=== PATIENT | female | born 1990 | race Caucasian/White ===

== ENCOUNTER 2018-04-24 15:39 | Emergency (ER) | payer OTHER, SELFPAY ==
--- NOTE | 2018-04-24 16:04 | ERPHSYRPT ---
- History of Present Illness Time Seen by Provider: 04/24/18 15:50 Historian: patient Exam Limitations: no limitations Patient Subjective Stated Complaint: pt here for pain to right side since last night , that started last night, nausea, no vomiting or loose stools, Triage Nursing Assessment: pt alert, walked in, resp easy, skin w/d/p. has rebound tenderness to right side Physician History: 28 y/o white female presents with 24 hour h/o worsening rlq abd pain. no n/v/d or fevers. pain localized in that area and now hurts to extend right leg. denies rectal bleeding. and denies white vaginal discharge. no flank pain. pt states she did notice mild vaginal blood spotting this am. last menstrual period 3 weeks ago. Activities at Onset: none Quality: sharpness Abdominal Pain Onset Location: RLQ Pain Radiation: no radiation Modifying Factors: Improves With: lying down, palpation, position, walking Associated Symptoms: No back, No chest pain, No diaphoresis, No diarrhea, No fever/chills, No nausea, No neck pain, No shortness of breath, No vomiting, No weakness Previous symptoms: no prior history Allergies/Adverse Reactions: Penicillins Allergy (Mild, Verified 04/24/18 15:45) Pt states Home Medications: Gabapentin 100 mg TID 04/24/18 [History] Hx Tetanus, Diphtheria Vaccination/Date Given: Yes Hx Influenza Vaccination/Date Given: No Hx Pneumococcal Vaccination/Date Given: No Immunizations Up to Date: Yes - Review of Systems Constitutional: No Symptoms Eyes: No Symptoms Ears, Nose, & Throat: No Symptoms Respiratory: No Symptoms Cardiac: No Symptoms Abdominal/Gastrointestinal: Abdominal Pain, No Nausea, No Vomiting, No Diarrhea Genitourinary Symptoms: Vaginal Bleeding (mild blood spotting once this am), No Dysuria, No Frequency, No Hematuria Musculoskeletal: No Symptoms Skin: No Symptoms Neurological: No Symptoms Psychological: No Symptoms Endocrine: No Symptoms Hematologic/Lymphatic: No Symptoms Immunological/Allergic: No Symptoms All Other Systems: Reviewed and Negative - Past Medical History Pertinent Past Medical History: No Neurological History: No Pertinent History ENT History: No Pertinent History Cardiac History: No Pertinent History Respiratory History: No Pertinent History Endocrine Medical History: No Pertinent History Musculoskeletal History: No Pertinent History GI Medical History: No Pertinent History History: No Pertinent History Psycho-Social History: No Pertinent History Female Reproductive Disorders: No Pertinent History - Past Surgical History Past Surgical History: Yes Neuro Surgical History: No Pertinent History Cardiac: No Pertinent History Respiratory: No Pertinent History Gastrointestinal: No Pertinent History Genitourinary: No Pertinent History Musculoskeletal: No Pertinent History Female Surgical History: No Pertinent History Other Surgical History: TONSILS AND ADENOIDS - Social History Smoking Status: Never smoker Exposure to second hand smoke: Yes Drug Use: none Patient Lives Alone: No - Female History Hx Last Menstrual Period: mar 2018 Hx Now: No - Nursing Vital Signs Nursing Vital Signs: Initial Vital Signs Temperature 97.6 F 04/24/18 15:51 Pulse Rate 86 04/24/18 15:51 Respiratory Rate 16 04/24/18 15:51 Blood Pressure 115/70 04/24/18 15:51 O2 Sat by Pulse Oximetry 100 04/24/18 15:51 Pain Scale Pain Intensity 4 - Physical Exam General Appearance: mild distress, alert, anxiety Eye Exam: PERRL/EOMI Ears, Nose, Throat Exam: normal ENT inspection, moist mucous membranes Neck Exam: normal inspection, non-tender, supple, full range of motion Respiratory Exam: normal breath sounds, lungs clear, airway intact, No respiratory distress, No accessory muscle use, No rhonchi, No wheezing, No stridor Cardiovascular Exam: regular rate/rhythm Gastrointestinal/Abdomen Exam: soft, normal bowel sounds, tenderness (right lower quadrant), guarding, rebound (+/-) Pelvic Exam: not done Rectal Exam: not done Back Exam: normal inspection, normal range of motion, CVA tenderness Extremity Exam: normal inspection, normal range of motion, pelvis stable Neurologic Exam: alert, oriented x 3, cooperative, marketing regional consultant II-XII nml as tested Skin Exam: normal color, warm, dry Lymphatic Exam: No adenopathy SpO2 Interpretation: normal SpO2: 100 Oxygen Delivery: Room Air Ordered Tests: Active Orders 24 hr Category Date Time Status Clean Catch Urine Specimen STAT Care 04/24/18 16:05 Active IV Insertion STAT Care 04/24/18 16:05 Active ABDOMEN AND PELVIS W CONTRAST [CT] Stat Exams 04/24/18 16:06 Taken AMYLASE Stat Lab 04/24/18 16:10 Completed CBC W DIFF Stat Lab 04/24/18 16:10 Completed CMP Stat Lab 04/24/18 16:10 Completed CULTURE,URINE Stat Lab 04/24/18 17:33 Received HCG,QUALITATIVE URINE Stat Lab 04/24/18 17:33 Completed LIPASE Stat Lab 04/24/18 16:10 Completed Lactic Acid Stat Lab 04/24/18 16:05 Completed Lactic Acid Stat Lab 04/24/18 18:25 Completed UA W/RFX UR CULTURE Stat Lab 04/24/18 17:33 Completed Medication Summary Discontinued Medications Generic Name Dose Route Start Last Admin Trade Name Zander PRN Reason Stop Dose Admin Sodium Chloride 1,000 mls @ 999 mls/hr 04/24/18 16:05 04/24/18 18:53 Sodium Chloride 0.9% 1000 Ml IV 04/24/18 17:05 Infused .Q1H1M STA Infusion Sodium Chloride Confirm 04/24/18 16:43 Sodium Chloride 0.9% 1000 Ml Administered 04/24/18 16:44 Dose 1,000 mls @ ud .ROUTE .STK-MED ONE Ceftriaxone Sodium/Dextrose 1 g in 50 mls @ 100 mls/hr 04/24/18 19:22 19:28 Rocephin 1 Gm-D5w 50 Ml Bag IV 04/24/18 19:51 100 mls/hr STAT STA 100 mls/hr Administration Ceftriaxone Sodium/Dextrose Confirm 04/24/18 19:25 Rocephin 1 Gm-D5w 50 Ml Bag Administered 04/24/18 19:26 Dose 1 g in 50 mls @ ud IV .STK-MED ONE Levofloxacin 500 mg 04/24/18 19:23 04/24/18 19:29 Levofloxacin 500 Mg Tablet PO 04/24/18 19:24 500 mg STAT ONE Administration Levofloxacin Confirm 04/24/18 19:25 Levofloxacin 500 Mg Tablet Administered 04/24/18 19:26 Dose 500 mg .ROUTE .STK-MED ONE Morphine Sulfate 2 mg 04/24/18 17:57 04/24/18 18:06 Morphine Sulfate 2 Mg Inj IV 04/24/18 17:58 2 mg STAT ONE Administration Morphine Sulfate Confirm 04/24/18 18:03 Morphine Sulfate 2 Mg Inj Administered 04/24/18 18:04 Dose 2 mg .ROUTE .STK-MED ONE Ondansetron HCl 4 mg 04/24/18 17:57 04/24/18 18:07 Zofran 4 Mg/2 Ml Vial IV 04/24/18 17:58 4 mg STAT ONE Administration Ondansetron HCl Confirm 04/24/18 18:03 Zofran 4 Mg/2 Ml Vial Administered 04/24/18 18:04 Dose 4 mg .ROUTE .STK-MED ONE Lab/Rad Data: Laboratory Result Diagrams 04/24/18 16:10 04/24/18 16:10 Laboratory Results 04/24/18 04/24/18 04/24/18 Range/Units 18:25 17:33 17:33 WBC (4.0-10.5) K/mm3 RBC (4.1-5.4) M/mm3 Hgb (12.0-16.0) gm/dl Hct (35-47) % MCV (78-100) fl MCH (26-32) pg MCHC (32-36) g/dl RDW (11.5-14.0) % Plt Count (150-450) K/mm3 MPV (6-9.5) fl Gran % (36.0-66.0) % Eos # (Auto) (0-0.5) Absolute Lymphs (auto) (1.0-4.6) Absolute Monos (auto) (0.0-1.3) Lymphocytes % (24.0-44.0) % Monocytes % (0.0-12.0) % Eosinophils % (0.00-5.0) % Basophils % (0.0-0.4) % Absolute Granulocytes (1.4-6.9) Basophils # (0-0.4) Sodium (137-145) mmol/L Potassium (3.5-5.1) mmol/L Chloride (98-107) mmol/L Carbon Dioxide (22-30) mmol/L Anion Gap (5-15) MEQ/L BUN (7-17) mg/dL Creatinine (0.52-1.04) mg/dL Estimated GFR ML/MIN Glucose (74-106) mg/dL Lactic Acid 0.7 (0.4-2.0) Calcium (8.4-10.2) mg/dL Total Bilirubin (0.2-1.3) mg/dL AST (14-36) U/L ALT (0-35) U/L Alkaline Phosphatase (38-126) U/L Serum Total Protein (6.3-8.2) g/dL Albumin (3.5-5.0) g/dL Amylase (30-110) U/L Lipase (23-300) U/L Urine Color YELLOW (YELLOW) Urine Appearance CLOUDY (CLEAR) Urine pH 5.0 (5-6) Ur Specific [place] 1.013 (1.005-1.025) Urine Protein 100 (Negative) Urine Ketones NEGATIVE (NEGATIVE) Urine Blood LARGE (0-5) Timo/ul Urine Nitrite POSITIVE (NEGATIVE) Urine Bilirubin NEGATIVE (NEGATIVE) Urine Urobilinogen NEGATIVE (0-1) mg/dL Ur Leukocyte Esterase LARGE (NEGATIVE) Urine WBC (Auto) >100 (0-5) /HPF Urine RBC (Auto) 26-50 (0-2) /HPF U Epithel Cells (Auto) RARE (FEW) /HPF Urine Bacteria (Auto) MODERATE (NEGATIVE) /HPF Urine Mucus (Auto) SLIGHT (NEGATIVE) /HPF Urine Culture Reflexed YES (NO) Urine Glucose NEGATIVE (NEGATIVE) mg/dL Urine HCG, Qual NEGATIVE (Negative) 04/24/18 04/24/18 04/24/18 Range/Units 16:10 16:10 16:05 WBC 11.0 H (4.0-10.5) K/mm3 RBC 3.97 L (4.1-5.4) M/mm3 Hgb 12.2 (12.0-16.0) gm/dl Hct 37.2 (35-47) % MCV 93.7 (78-100) fl MCH 30.7 (26-32) pg MCHC 32.8 (32-36) g/dl RDW 12.7 (11.5-14.0) % Plt Count 310 (150-450) K/mm3 MPV 10.2 H (6-9.5) fl Gran % 79.5 H (36.0-66.0) % Eos # (Auto) 0.09 (0-0.5) Absolute Lymphs (auto) 1.40 (1.0-4.6) Absolute Monos (auto) 0.74 (0.0-1.3) Lymphocytes % 12.8 L (24.0-44.0) % Monocytes % 6.7 (0.0-12.0) % Eosinophils % 0.8 (0.00-5.0) % Basophils % 0.2 (0.0-0.4) % Absolute Granulocytes 8.72 H (1.4-6.9) Basophils # 0.02 (0-0.4) Sodium 140 (137-145) mmol/L Potassium 3.8 (3.5-5.1) mmol/L Chloride 102 (98-107) mmol/L Carbon Dioxide 28 (22-30) mmol/L Anion Gap 14.9 (5-15) MEQ/L BUN 13 (7-17) mg/dL Creatinine 0.53 (0.52-1.04) mg/dL Estimated GFR > 60.0 ML/MIN Glucose 95 (74-106) mg/dL Lactic Acid 2.5 H (0.4-2.0) Calcium 9.6 (8.4-10.2) mg/dL Total Bilirubin 0.30 (0.2-1.3) mg/dL AST 16 (14-36) U/L ALT 18 (0-35) U/L Alkaline Phosphatase 49 (38-126) U/L Serum Total Protein 8.0 (6.3-8.2) g/dL Albumin 4.7 (3.5-5.0) g/dL Amylase 51 (30-110) U/L Lipase 68 (23-300) U/L Urine Color (YELLOW) Urine Appearance (CLEAR) Urine pH (5-6) Ur Specific [place] (1.005-1.025) Urine Protein (Negative) Urine Ketones (NEGATIVE) Urine Blood (0-5) Timo/ul Urine Nitrite (NEGATIVE) Urine Bilirubin (NEGATIVE) Urine Urobilinogen (0-1) mg/dL Ur Leukocyte Esterase (NEGATIVE) Urine WBC (Auto) (0-5) /HPF Urine RBC (Auto) (0-2) /HPF U Epithel Cells (Auto) (FEW) /HPF Urine Bacteria (Auto) (NEGATIVE) /HPF Urine Mucus (Auto) (NEGATIVE) /HPF Urine Culture Reflexed (NO) Urine Glucose (NEGATIVE) mg/dL Urine HCG, Qual (Negative) - Progress Progress: improved, re-examined Progress Note: 04/24/18 20:09 i d/w pt regarding ct scan findings. i recommended overnight observation and reassessment because radiologist did not visualize appendix. i feel pt has greater likelihood of a kidney infection. pt does not want to stay overnight because she has to take care of things at home. i am having her sign an ama form. pt is to return tomorrow morning for reassessment. i will rx for levaquin Counseled pt/family regarding: lab results, diagnosis, need for follow-up, rad results - Departure Time of Disposition: 20:12 Departure Disposition: AMA Clinical Impression: Abdominal pain, Kidney infection Condition: Stable Critical Care Time: No Additional Instructions: drink plenty of fluids. use tylenol and ibuprofen for pain. return to ED tomorrow morning for reassessment. return sooner if symptoms worsen Prescriptions: Levofloxacin [Levaquin 500 MG Tablet] 500 mg PO DAILY #7 tablet
[2018-04-24] MEDS ORDERED: Sodium Chloride 0.9% 1000 ML 1,000 ML IV STA (16:05)
[2018-04-24 16:14] LABS: Lactic Acid 2.5 (0.4-2.0)
[2018-04-24 16:36] LABS: BASOPHIL % 0.2 % (0.0-0.4); Basophil (Absolute #) 0.02 (0-0.4); Eosinophil % 0.8 % (0.00-5.0); Eosinophil (Absolute #) 0.09 (0-0.5); Granulocyte Absolute (ANC) 8.72 (1.4-6.9); Granulocytes % 79.5 % (36.0-66.0); Hematocrit 37.2 % (35-47); Hemoglobin 12.2 gm/dl (12.0-16.0); Lymphocytes % 12.8 % (24.0-44.0); Mean Cell Volume 93.7 fl (78-100); Mean Corpuscular Hemoglobin 30.7 pg (26-32); Mean Corpuscular Hgb Concent. 32.8 g/dl (32-36); Mean Platelet Volume 10.2 fl (6-9.5); Monocyte (Absolute #) 0.74 (0.0-1.3); Monocytes % 6.7 % (0.0-12.0); Platelet Count 310 K/mm3 (150-450); Red Blood Count 3.97 M/mm3 (4.1-5.4); Red Cell Distribution Width 12.7 % (11.5-14.0)
[2018-04-24] MEDS ORDERED: Sodium Chloride 0.9% 1000 ML 1,000 ML ONE (16:43)
[2018-04-24 17:07] LABS: ALBUMIN 4.7 g/dL (3.5-5.0); ALKALINE PHOSPHATASE 49 U/L (38-126); AMYLASE 51 U/L (30-110); ANION GAP 14.9 MEQ/L (5-15); BLOOD UREA NITROGEN 13 mg/dL (7-17); CHLORIDE 102 mmol/L (98-107); Calcium 9.6 mg/dL (8.4-10.2); Carbon Dioxide 28 mmol/L (22-30); Creatinine 1 0.53 mg/dL (0.52-1.04); Glucose 95 mg/dL (74-106); LIPASE 68 U/L (23-300); Potassium 3.8 mmol/L (3.5-5.1); SGOT/AST 16 U/L (14-36); SGPT/ALT 18 U/L (0-35); SODIUM 140 mmol/L (137-145)
[2018-04-24 17:54] LABS: Appearance CLOUDY (CLEAR); Bilirubin NEGATIVE (NEGATIVE); Blood LARGE Ery/ul (0-5); Glucose NEGATIVE (NEGATIVE); Ketones NEGATIVE (NEGATIVE); Leukocyte Esterase LARGE (NEGATIVE); Nitrite POSITIVE (NEGATIVE); Protein,Urine Dip 100 (Negative); Specific Gravity 1.013 (1.005-1.025); Urobilinogen NEGATIVE mg/dL (0-1)
[2018-04-24] MEDS ORDERED: MORPHINE SULFATE 2 MG INJ IV ONE (17:57)
[2018-04-24] MEDS ORDERED: Zofran 4 MG/2 ML VIAL IV ONE (17:57)
[2018-04-24] MEDS ORDERED: Zofran 4 MG/2 ML VIAL ONE (18:03)
[2018-04-24] MEDS ORDERED: MORPHINE SULFATE 2 MG INJ ONE (18:03)
[2018-04-24 19:17] VITALS: BP 111/68; PULSE 92; O2SAT 100
[2018-04-24] MEDS ORDERED: ROCEPHIN 1 Gm-D5w 50 ml Bag** 1 G/50 ML IVPB IV STA (19:22)
[2018-04-24] MEDS ORDERED: Levofloxacin 500 MG Tablet PO ONE (19:23)
[2018-04-24] MEDS ORDERED: ROCEPHIN 1 Gm-D5w 50 ml Bag** 1 G/50 ML IVPB IV ONE (19:25)
[2018-04-24] MEDS ORDERED: Levofloxacin 500 MG Tablet ONE (19:25)
--- NOTE | 2018-04-25 09:08 | XRAY ---
Indication: Right flank pain. Nausea. Multiple contiguous axial images obtained through the abdomen and pelvis using 80 cc Isovue 370 contrast only. Comparison: February 14, 2007. Lung bases demonstrates new left base 6 mm noncalcified nodule probably granulomatous in this demographic. No infiltrate or effusion. Heart is not enlarged. Noncontrasted stomach and bowel loops appear nonobstructed. Appendix not seen. Moderate diffuse scattered colonic fecal debris throughout. There are now parauterine varicosities as well as enlarged ovarian veins bilaterally up to 8mm favoring pelvic congestion syndrome. No free fluid/air. Spleen is enlarged measuring 12.4 cm in greatest axial dimension. Remaining liver, gallbladder, pancreas, spleen, adrenal glands, kidneys, ureters, bladder, uterus, and aorta appear unremarkable. No pathologic retroperitoneal lymphadenopathy. Osseous structures intact. No ventral or inguinal hernias. Impression: 1. New parauterine varicosities and enlarged ovarian veins favoring pelvic congestion syndrome. 2. Incidental splenomegaly and fecal stasis without obstruction. 3. New left lower lobe subcentimeter noncalcified nodule probably granulomatous in this demographic. CTDI 11.35
== END 2018-04-24 20:05 | disposition left against medical advice (07) ==
LOC: ED 15:39
DX: R10.31 Right lower quadrant pain (principal); N20.0 Calculus of kidney
CPT/HCPCS: 36415; 74177; 80053; 81001; 82150; 83605; 83690; 84703; 85025; 87077; 87086; 87186; 96360; 96365; 96374; 96375; 99284; J0696; J2270; J2405; A9270-GY

== ENCOUNTER 2020-03-14 09:03 | Observation (INO) | payer OTHER ==
[2020-03-14 09:50] VITALS: BP 127/65; PULSE 99
== END 2020-03-14 10:05 | disposition home or self-care (01) ==
LOC: OB 09:03
PROVIDERS: ADMIT Obstetrics & Gynecology; ATTEND Obstetrics & Gynecology
DX: Z34.83 Encounter for supervision of other normal pregnancy, third trimester (principal); Z3A.36 36 weeks gestation of pregnancy
CPT/HCPCS: 59025; G0378

== ENCOUNTER 2020-03-17 12:03 | Observation (INO) | payer OTHER ==
[2020-03-17 13:28] VITALS: BP 144/72; PULSE 73
== END 2020-03-17 14:40 | disposition home or self-care (01) ==
LOC: MED SURG 12:53
PROVIDERS: ADMIT Obstetrics & Gynecology; ATTEND Obstetrics & Gynecology
DX: Z34.83 Encounter for supervision of other normal pregnancy, third trimester (principal); Z3A.36 36 weeks gestation of pregnancy
CPT/HCPCS: 59025; G0378

== ENCOUNTER 2020-03-25 10:10 | Observation (INO) | payer OTHER ==
[2020-03-25 10:42] VITALS: BP 112/76; PULSE 79
== END 2020-03-25 11:00 | disposition home or self-care (01) ==
LOC: MED SURG 10:10
PROVIDERS: ADMIT Obstetrics & Gynecology; ATTEND Obstetrics & Gynecology
DX: Z34.83 Encounter for supervision of other normal pregnancy, third trimester (principal); Z3A.36 36 weeks gestation of pregnancy
CPT/HCPCS: 59025; G0378

== ENCOUNTER 2020-03-28 13:41 | Observation (INO) | payer OTHER ==
[2020-03-28 14:00] VITALS: PULSE 88
[2020-03-28 14:31] VITALS: BP 118/88
== END 2020-03-28 14:25 | disposition home or self-care (01) ==
LOC: UNDOADMOB 13:41 → OB 13:41 → UNDODISOB 14:25
PROVIDERS: ADMIT Obstetrics & Gynecology; ATTEND Obstetrics & Gynecology
DX: Z34.83 Encounter for supervision of other normal pregnancy, third trimester (principal); Z3A.37 37 weeks gestation of pregnancy
CPT/HCPCS: 59025; G0378

== ENCOUNTER 2020-04-07 11:53 | Observation (INO) | payer OTHER ==
[2020-04-07 12:23] VITALS: BP 126/82; PULSE 96
== END 2020-04-07 13:25 | disposition home or self-care (01) ==
LOC: OB 11:53
PROVIDERS: ADMIT Obstetrics & Gynecology; ATTEND Obstetrics & Gynecology
DX: Z34.83 Encounter for supervision of other normal pregnancy, third trimester (principal); Z3A.38 38 weeks gestation of pregnancy
CPT/HCPCS: 59025; G0378

== ENCOUNTER 2020-04-09 04:10 | Inpatient (IN) | payer OTHER ==
[2020-04-10 00:26] LABS: Amphetamine,Urine NEGATIVE (NEGATIVE); Barbiturate,Urine NEGATIVE (NEGATIVE); Benzodiazepine,Urine NEGATIVE (NEGATIVE); Cocaine,Urine NEGATIVE (NEGATIVE); Methadone,Urine NEGATIVE (NEGATIVE); Opiate,Urine NEGATIVE (NEGATIVE); PCP,Urine NEGATIVE (NEGATIVE); THC,Urine NEGATIVE (NEGATIVE)
[2020-04-10] MEDS ORDERED: OB EPIDURAL NAROPIN/SUFENTANIL IN NACL EPIDURAL PRN (02:09)
[2020-04-10] MEDS ORDERED: TYLENOL EXTRA STRENGTH 500 MG PO PRN (02:09)
[2020-04-10] MEDS ORDERED: Zofran 4 MG/2 ML VIAL IV PRN (02:09)
[2020-04-10 02:55] LABS: Absolute Neutrophil Ct (ANC) 4.86 (1.4-6.9); BASOPHIL % 0.1 % (0.0-0.4); Basophil (Absolute #) 0.01 (0-0.4); Eosinophil % 0.5 % (0.00-5.0); Eosinophil (Absolute #) 0.04 (0-0.5); Hematocrit 27.3 % (35-47); Hemoglobin 8.6 gm/dl (12.0-16.0); Lymphocyte (Absolute #) 1.73 (1.0-4.6); Lymphocytes % 23.2 % (24.0-44.0); Mean Corpuscular Hemoglobin 26.5 pg (26-32); Mean Corpuscular Hgb Concent. 31.5 g/dl (32-36); Mean Platelet Volume 11.4 fl (7.5-11.0); Monocyte (Absolute #) 0.83 (0.0-1.3); Monocytes % 11.1 % (0.0-12.0); Neutrophil % 65.1 % (36.0-66.0); Platelet Count 267 K/mm3 (150-450); Red Blood Count 3.25 M/mm3 (4.1-5.4); White Blood Count 7.5 K/mm3 (4.0-10.5)
[2020-04-10] MEDS: BENADRYL 50 MG/ML IV PRN ×2 (06:15→23:12)
[2020-04-10] MEDS ORDERED: Ephedrine Sulfate 50 MG/ML IV PRN (07:00)
[2020-04-10] MEDS ORDERED: PITOCIN 30 UNITS/ LR 500 ML 30 UNITS/500 ML IV.SOLN. IV SCH ×4 (07:00→08:00)
[2020-04-10] MEDS ORDERED: Lactated Ringers 1,000 ML IV SCH (07:00)
[2020-04-10] MEDS ORDERED: BRETHINE 1 MG/ML SQ PRN (07:00)
[2020-04-10] MEDS ORDERED: Lactated Ringers 1,000 ML IV ONE (07:00)
[2020-04-10] MEDS ORDERED: XYLOCAINE 1% HCL 20 ML MDV IJ PRN (08:00)
[2020-04-10 08:11] LABS: Appearance CLEAR (CLEAR); Bilirubin NEGATIVE (NEGATIVE); Blood NEGATIVE Ery/ul (0-5); Glucose NEGATIVE (NEGATIVE); Ketones TRACE (NEGATIVE); Leukocyte Esterase NEGATIVE (NEGATIVE); Nitrite NEGATIVE (NEGATIVE); Protein,Urine Dip NEGATIVE (Negative); Specific Gravity 1.009 (1.005-1.025); Urobilinogen NEGATIVE mg/dL (0-1)
[2020-04-10 08:12] LABS: Bacteria FEW /HPF (NEGATIVE); Epithelial Cells FEW /HPF (FEW); RBC 0-2 /HPF (0-2); WBC 0-2 /HPF (0-5)
[2020-04-10] MEDS ORDERED: Restoril 15 MG PO PRN (09:45)
[2020-04-10] MEDS ORDERED: Mylicon 80MG PO PRN (09:45)
[2020-04-10] MEDS: MOTRIN 400 MG PO PRN ×3 (10:55→23:06)
[2020-04-10] MEDS: Colace 100 MG PO SCH ×2 (10:55→22:30)
[2020-04-10] MEDS: FERREX 150 PO SCH (10:55)
[2020-04-10] MEDS: Dermoplast Spray TP PRN (15:03)
[2020-04-10] MEDS: TUCKS TP PRN (15:19)
[2020-04-10] MEDS: LANSINOH 40 GM TOP PRN (17:09)
[2020-04-11 03:55] LABS: BASOPHIL % 0.1 % (0.0-0.4); Basophil (Absolute #) 0.01 (0-0.4); Eosinophil % 0.8 % (0.00-5.0); Eosinophil (Absolute #) 0.07 (0-0.5); Hematocrit 27.9 % (35-47); Hemoglobin 8.6 gm/dl (12.0-16.0); Lymphocyte (Absolute #) 1.95 (1.0-4.6); Lymphocytes % 22.2 % (24.0-44.0); Mean Cell Volume 84.8 fl (78-100); Mean Corpuscular Hemoglobin 26.1 pg (26-32); Mean Corpuscular Hgb Concent. 30.8 g/dl (32-36); Mean Platelet Volume 11.4 fl (7.5-11.0); Monocyte (Absolute #) 0.75 (0.0-1.3); Monocytes % 8.5 % (0.0-12.0); Neutrophil % 68.4 % (36.0-66.0); Platelet Count 281 K/mm3 (150-450); Red Blood Count 3.29 M/mm3 (4.1-5.4); White Blood Count 8.8 K/mm3 (4.0-10.5)
[2020-04-11] MEDS: MOTRIN 400 MG PO PRN ×3 (05:32→21:36)
[2020-04-11] MEDS: Colace 100 MG PO SCH ×2 (10:02→21:36)
[2020-04-11] MEDS: FERREX 150 PO SCH (10:02)
[2020-04-11] MEDS: FEOSOL 325 MG PO SCH (21:36)
[2020-04-11] MEDS: Dermoplast Spray TP PRN (21:37)
[2020-04-11] MEDS: TUCKS TP PRN (21:37)
[2020-04-11] MEDS: LANSINOH 40 GM TOP PRN (21:38)
[2020-04-12 01:52] VITALS: O2SAT 98
[2020-04-12 05:02] VITALS: BP 117/71; PULSE 68
[2020-04-12] MEDS: MOTRIN 400 MG PO PRN ×2 (05:52→12:58)
--- NOTE | 2020-04-12 09:17 | PCM.NOTE ---
Date and Time: 04/12/20915 Subjective Assessment: ppd 2 pt resting in bed and doing well ambulating and tolerating diet vss afebrile abd; soft uterus; firm lochia; mild a/p sp ppd 2 with anemia dc home today fu office in 6 wks for check should continue taking iron supplementation for anemia bid OBJECTIVE DATA Vital Signs: Vital Signs - 24 hr Temp Pulse Resp BP Pulse Ox 04/12/20 03:30 98.1 F 68 17 117/71 98 04/12/20 00:00 97.7 F 71 17 109/73 98 04/11/20 20:00 98 F 70 17 113/74 99 Pain Assessment - Last Documented Pain Intensity [Anterior] 1 Pain Intensity 1 Pain Scale Used 0-10 Pain Scale Intake and Output: Intake & Output 04/09/20 04/10/20 04/11/20 04/12/20 11:59 11:59 11:59 11:59 Intake Total 240 1680 960 Output Total 200 200 Balance 40 1480 960 Weight 87.09 kg
--- NOTE | 2020-04-12 09:21 | PCM.DS ---
Discharge Summary Date of Admission: 04/10/20 04:10 Date of Discharge: 04/12/20 Admitting Physician: MEHDI YOUNG DO Consults: Consults on Case 04/10/20 07:00 Notify Anesthesia Provider PRN Primary Care Provider: NO FAMILY DOCTOR Allergies Allergies vancomycin Allergy (Severe, Verified 03/17/20 13:19) Tightness of Throat Penicillins Allergy (Mild, Verified 03/17/20 13:19) Hives amoxicillin Allergy (Verified 04/09/20 23:52) [facility] Summary - Hospital Course Hospital Course: pt admitted for being in early labor on apr 10 and was subseuently started on pitocin and delivered live baby boy via without complication. during period did very well and now stable for discharge. pt noted being anemic and was placed on iron supplemention twice daily. pt at this time stable for discharge and was advised to fu in office in 6 wks for care. all questions answered to her satisfaction. - Vitals & Intake/Output Vital Signs: Vital Signs Temperature 98.1 F 04/12/20 03:30 Pulse Rate 68 04/12/20 03:30 Respiratory Rate 17 04/12/20 03:30 Blood Pressure 117/71 04/12/20 03:30 O2 Sat by Pulse Oximetry 98 04/12/20 03:30 Intake & Output: Intake & Output 04/09/20 04/10/20 04/11/20 04/12/20 11:59 11:59 11:59 11:59 Intake Total 240 1680 960 Output Total 200 200 Balance 40 1480 960 Weight 87.09 kg - Lab Result Diagrams: 04/11/20 03:30 Micro Results-Entire Visit: Microbiology 04/10/20 08:30 Urine Culture - Final Catherized NO GROWTH - Discharge Disposition: Home, Self-Care Condition: Stable Prescriptions: No Action Pnv No.103/Folic/Om3s/Fish Oil [ Gummies] 1 tablet PO DAILY Follow up with: MEHDI YOUNG DO [ACTIVE STAFF] - 6 weeks (should fu in 6 wks for care should continue taking iron supplementation bid)
[2020-04-12] MEDS: FEOSOL 325 MG PO SCH (10:19)
[2020-04-12] MEDS ORDERED: Adacel Vial IM ONE (14:00)
== END 2020-04-12 15:15 | disposition home or self-care (01) | DRG 807 ==
LOC: OB 04:10 → UNDOADMOB 23:26 → OB 23:36 → UNDOADMOB 23:36 → OBSVTOIN 04-10 04:10 → OB 04-10 04:11
PROVIDERS: ADMIT Obstetrics & Gynecology; ATTEND Obstetrics & Gynecology
PROC: 10E0XZZ Delivery of Products of Conception, External Approach (ICD-10-PCS; principal; 2020-04-10)
DX: O69.81X0 Labor and delivery complicated by cord around neck, without compression, not applicable or unspecified (principal); Z37.0 Single live birth; Z3A.39 39 weeks gestation of pregnancy
CPT/HCPCS: 36415; 59025; 59425; 80307; 81001; 81002; 85025; 87086; 90715; G0378; J1200; J2590; J2795; A9270-GY

== ENCOUNTER 2021-02-27 16:20 | Observation (INO) | payer OTHER ==
[2021-02-27 16:39] VITALS: BP 123/71; PULSE 85
[2021-02-27 16:40] LABS: Appearance SLIGHTLY CLOUDY (CLEAR); Bilirubin NEGATIVE (NEGATIVE); Blood NEGATIVE Ery/ul (0-5); Epithelial Cells RARE /HPF (FEW); Glucose NEGATIVE (NEGATIVE); Ketones NEGATIVE (NEGATIVE); Leukocyte Esterase NEGATIVE (NEGATIVE); Mucus SLIGHT /HPF (NEGATIVE); Nitrite NEGATIVE (NEGATIVE); Protein,Urine Dip NEGATIVE (Negative); RBC 0-2 /HPF (0-2); Specific Gravity 1.021 (1.005-1.025); Urobilinogen 2 mg/dL (0-1)
[2021-02-27 16:51] LABS: Amphetamine,Urine NEGATIVE (NEGATIVE); Barbiturate,Urine NEGATIVE (NEGATIVE); Benzodiazepine,Urine NEGATIVE (NEGATIVE); Cocaine,Urine NEGATIVE (NEGATIVE); Methadone,Urine NEGATIVE (NEGATIVE); Opiate,Urine NEGATIVE (NEGATIVE); PCP,Urine NEGATIVE (NEGATIVE); THC,Urine NEGATIVE (NEGATIVE)
== END 2021-02-27 17:47 | disposition home or self-care (01) ==
LOC: OB 16:20
PROVIDERS: ADMIT Obstetrics & Gynecology; ATTEND Obstetrics & Gynecology
DX: Z34.83 Encounter for supervision of other normal pregnancy, third trimester (principal); Z3A.38 38 weeks gestation of pregnancy
CPT/HCPCS: 80307; 81001; G0378

== ENCOUNTER 2021-03-03 02:13 | Inpatient (IN) | payer OTHER ==
[2021-03-03] MEDS ORDERED: Zofran 4 MG/2 ML VIAL IV PRN (05:00)
[2021-03-03 05:53] LABS: Absolute Neutrophil Ct (ANC) 4.17 (1.4-6.9); BASOPHIL % 0.2 % (0.0-0.4); Basophil (Absolute #) 0.01 (0-0.4); Eosinophil % 0.8 % (0.00-5.0); Eosinophil (Absolute #) 0.05 (0-0.5); Hematocrit 31.6 % (35-47); Hemoglobin 10.2 gm/dl (12.0-16.0); Lymphocyte (Absolute #) 1.61 (1.0-4.6); Mean Cell Volume 86.8 fl (78-100); Mean Corpuscular Hgb Concent. 32.3 g/dl (32-36); Mean Platelet Volume 10.5 fl (7.5-11.0); Monocytes % 9.3 % (0.0-12.0); Neutrophil % 64.7 % (36.0-66.0); Platelet Count 266 K/mm3 (150-450); Red Blood Count 3.64 M/mm3 (4.1-5.4); Red Cell Distribution Width 14.4 % (11.5-14.0); White Blood Count 6.4 K/mm3 (4.0-10.5)
[2021-03-03] MEDS ORDERED: Lactated Ringers 1,000 ML IV SCH (06:00)
[2021-03-03] MEDS ORDERED: PITOCIN 30 UNITS/ LR 500 ML 30 UNITS/500 ML IV.SOLN. IV SCH (06:00)
[2021-03-03] MEDS ORDERED: BRETHINE 1 MG/ML SQ PRN (06:00)
[2021-03-03 06:13] LABS: Amphetamine,Urine NEGATIVE (NEGATIVE); Barbiturate,Urine NEGATIVE (NEGATIVE); Benzodiazepine,Urine NEGATIVE (NEGATIVE); Cocaine,Urine NEGATIVE (NEGATIVE); Methadone,Urine NEGATIVE (NEGATIVE); PCP,Urine NEGATIVE (NEGATIVE); THC,Urine NEGATIVE (NEGATIVE)
[2021-03-03 06:21] LABS: Opiate,Urine NEGATIVE (NEGATIVE)
[2021-03-03 06:43] LABS: ABO TYPING A; Antibody Screen NEGATIVE (NEGATIVE); RH TYPING POSITIVE
[2021-03-03] MEDS ORDERED: OB EPIDURAL NAROPIN/SUFENTANIL IN NACL EPIDURAL PRN (10:23)
[2021-03-03] MEDS ORDERED: Ephedrine Sulfate 50 MG/ML IV PRN (10:23)
[2021-03-03] MEDS ORDERED: Lactated Ringers 1,000 ML IV ONE (10:23)
[2021-03-03] MEDS ORDERED: TUCKS TP PRN (13:17)
[2021-03-03] MEDS ORDERED: LANSINOH 40 GM TOP PRN (13:17)
[2021-03-03] MEDS ORDERED: Dermoplast Spray TP PRN (13:30)
[2021-03-03] MEDS: MOTRIN 400 MG PO PRN (17:16)
[2021-03-03] MEDS: TYLENOL EXTRA STRENGTH 500 MG PO PRN (20:36)
[2021-03-03] MEDS: Colace 100 MG PO SCH (20:36)
[2021-03-04] MEDS: MOTRIN 400 MG PO PRN ×3 (01:35→18:34)
[2021-03-04 05:22] LABS: Absolute Neutrophil Ct (ANC) 5.17 (1.4-6.9); BASOPHIL % 0.1 % (0.0-0.4); Basophil (Absolute #) 0.01 (0-0.4); Eosinophil % 0.6 % (0.00-5.0); Eosinophil (Absolute #) 0.05 (0-0.5); Hematocrit 29.8 % (35-47); Hemoglobin 9.6 gm/dl (12.0-16.0); Lymphocytes % 24.1 % (24.0-44.0); Mean Cell Volume 87.4 fl (78-100); Mean Corpuscular Hemoglobin 28.2 pg (26-32); Mean Corpuscular Hgb Concent. 32.2 g/dl (32-36); Mean Platelet Volume 11.1 fl (7.5-11.0); Monocyte (Absolute #) 0.77 (0.0-1.3); Monocytes % 9.7 % (0.0-12.0); Neutrophil % 65.5 % (36.0-66.0); Platelet Count 224 K/mm3 (150-450); Red Blood Count 3.41 M/mm3 (4.1-5.4); Red Cell Distribution Width 14.5 % (11.5-14.0); White Blood Count 7.9 K/mm3 (4.0-10.5)
[2021-03-04] MEDS: Colace 100 MG PO SCH ×2 (08:27→22:53)
[2021-03-04] MEDS ORDERED: FERREX 150 PO SCH (10:00)
[2021-03-04] MEDS: TYLENOL EXTRA STRENGTH 500 MG PO PRN ×2 (12:32→22:57)
[2021-03-05] MEDS: MOTRIN 400 MG PO PRN (03:16)
[2021-03-05 04:58] VITALS: O2SAT 99
--- NOTE | 2021-03-05 07:51 | PCM.DS ---
Discharge Summary Date of Admission: 03/03/21 09:00 Admitting Physician: RICHARD COTA Consults: Consults on Case 03/03/21 10:23 Notify Anesthesia Provider PRN 03/03/21 13:22 Notify Physician ROUTINE Primary Care Provider: NO FAMILY DOCTOR Allergies Allergies vancomycin Allergy (Severe, Verified 02/27/21 16:35) Tightness of Throat Penicillins Allergy (Mild, Verified 02/27/21 16:35) Hives amoxicillin Allergy (Verified 02/27/21 16:35) [facility] Summary - Hospital Course Hospital Course: patient induced at 39 wks, uncomplicated . no complications , and well bonded with son. - Vitals & Intake/Output Vital Signs: Vital Signs Temperature 98.1 F 03/05/21 03:00 Pulse Rate 64 03/05/21 03:00 Respiratory Rate 18 03/05/21 03:00 Blood Pressure 121/64 03/05/21 03:00 O2 Sat by Pulse Oximetry 99 03/05/21 03:00 Intake & Output: Intake & Output 03/02/21 03/03/21 03/04/21 03/05/21 11:59 11:59 11:59 11:59 Intake Total 1250 550 Balance 1250 550 Weight 83.915 kg - Lab Result Diagrams: 03/04/21 04:18 Micro Results-Entire Visit: Microbiology 03/03/21 14:32 Urine Culture - Preliminary Catherized NO GROWTH TO DATE Discharge Exam General Appearance: no apparent distress, alert Neurologic Exam: alert, oriented x 3 Respiratory Exam: normal breath sounds, lungs clear, No respiratory distress Cardiovascular Exam: regular rate/rhythm, normal heart sounds Gastrointestinal/Abdomen Exam: soft, No tenderness, No mass Extremity Exam: normal inspection, normal range of motion Skin Exam: normal color, warm, dry Final Diagnosis/Problem List - Final Discharge Diagnosis/Problem (1) Vaginal delivery Current Visit: Yes Status: Acute Code(s): O80 - ENCOUNTER FOR FULL-TERM UNCOMPLICATED DELIVERY - Discharge Disposition: Home, Self-Care Condition: Stable Prescriptions: Continue Pnv No.103/Folic/Om3s/Fish Oil [ Gummies] 1 tablet PO DAILY Follow up with: RICHARD COTA MD [ACTIVE STAFF] - 6 weeks
[2021-03-05 10:21] VITALS: BP 114/62; PULSE 79
== END 2021-03-05 10:10 | disposition home or self-care (01) | DRG 807 ==
LOC: OB 05:04 → OBSVTOIN 09:00 → OB 09:00
PROVIDERS: ADMIT Family Medicine; ATTEND Family Medicine
PROC: 10E0XZZ Delivery of Products of Conception, External Approach (ICD-10-PCS; principal; 2021-03-03)
DX: O69.0XX0 Labor and delivery complicated by prolapse of cord, not applicable or unspecified (principal); Z37.0 Single live birth; Z3A.39 39 weeks gestation of pregnancy
CPT/HCPCS: 36415; 80307; 85025; 86850; 86900; 86901; 87086; G0378; J2590; J2795; A9270-GY

== ENCOUNTER 2021-07-06 06:36 | Day surgery (SDC) | payer OTHER ==
[~2021-07-06 06:36] MED LIST: CLINDAMYCIN-D5W 900 MG/50 ML*** 900 MG/50 ML BAG IV SCH; DIPRIVAN 200 MG/20 ML IV ONE; Decadron 4 MG INJ ONE; Lactated Ringers 1,000 ML IV SCH; SUBLIMAZE 100 MCG/2 ML ONE; TORAdol 30 mg Injection ONE; Versed 2 MG/2 ML Injection ONE; Zofran 4 MG/2 ML VIAL ONE
[2021-07-06] MEDS ORDERED: Sensorcaine 0.25% 10 ML ONE (06:41)
[2021-07-06] MEDS ORDERED: CLINDAMYCIN-D5W 900 MG/50 ML*** 900 MG/50 ML BAG IV ONE (07:13)
[2021-07-06] MEDS ORDERED: Lactated Ringers 1,000 ML IV ONE (07:13)
[2021-07-06] MEDS ORDERED: Decadron 4 MG INJ ONE (08:31)
[2021-07-06] MEDS ORDERED: TORAdol 30 mg Injection ONE (08:31)
[2021-07-06] MEDS ORDERED: Zofran 4 MG/2 ML VIAL ONE (08:31)
[2021-07-06] MEDS ORDERED: Zemuron 100 MG/10 ML ONE (08:31)
[2021-07-06] MEDS ORDERED: SUBLIMAZE 100 MCG/2 ML ONE ×2 (08:31→09:35)
[2021-07-06] MEDS ORDERED: DIPRIVAN 200 MG/20 ML IV ONE ×2 (08:31→08:33)
[2021-07-06] MEDS ORDERED: BRIDION 200MG/2ML IV ONE (08:31)
[2021-07-06] MEDS ORDERED: Xylocaine-Mpf 2% 5 Ml Vial ONE (08:31)
[2021-07-06] MEDS ORDERED: Hydromorphone 1 mg/ml Injection ONE (09:35)
[2021-07-06] MEDS ORDERED: DEMEROL 50 MG ONE (09:40)
[2021-07-06] MEDS ORDERED: MORPHINE SULFATE 10 MG/ML ONE (09:48)
[2021-07-06] MEDS ORDERED: PERCOCET TABLET 5/325MG ONE (11:01)
[2021-07-06] MEDS ORDERED: PERCOCET TABLET 5/325MG PO ONE (11:05)
[2021-07-06 14:35] VITALS: O2SAT 95
[2021-07-06 14:38] VITALS: BP 103/74; PULSE 69
--- NOTE | 2021-07-07 09:15 | OP ---
SURGERY DATE/TIME: 07/06/2021 0850 PREOPERATIVE DIAGNOSIS: Multiparity desiring tubal sterilization. POSTOPERATIVE DIAGNOSIS: Multiparity desiring tubal sterilization. PROCEDURE: Laparoscopic tubal sterilization via Falope ring application. SURGEON: Skip Tabares D.O. UNDER SHERIFF: Rolan Spencer film technician. ANESTHESIA: General. ESTIMATED BLOOD LOSS: Minimal. COMPLICATIONS: None. INDICATIONS: The risks, benefits, indications and alternatives of the procedure were reviewed with the patient prior to the procedure. The patient understood the risk of infection, bleeding, bowel injury, bladder injury, ureteral injury, uterine perforation, pelvic infection, possible ectopic , possible , bleeding disorders, heavy bleeding, irregular bleeding that may be associated with having tubal sterilization. All forms of control were discussed with the patient prior to the procedure. DESCRIPTION OF PROCEDURE AND FINDINGS: At this point the patient is taken to the operating room, given general sedation, placed in dorsal lithotomy position, prepped and draped in the usual sterile fashion. A weighted speculum is then placed in the patient's vagina and the anterior lip of the cervix is grasped with a single tooth tenaculum. Endocervical dilators were advanced through the endocervical canal as a means to dilate the cervix and the uterine manipulator was then inserted in through the endocervical canal as a means to manipulate the uterus. Attention was then turned to the patient's abdomen where a skin incision was made approximately 4 cm above the umbilicus where the patient was noted to have an umbilical hernia that was noted. A 5 mm incision was made approximately 4 cm above the umbilicus and a 5 mm trocar and sleeve were advanced under direct visualization where pneumoperitoneum was obtained with 4 liters of CO2 gas. An additional incision was made approximately 2 cm above the symphysis pubis where an 8 mm incision was made and 8 mm trocar and sleeve were advanced under direct visualization. From this point I surveyed the patient's pelvic and abdominal region and appeared to be within normal limits. At this point the uterus was elevated and the right fallopian tube identified and a Falope ring applicator was used to apply the Falope ring on the right isthmic region of the fallopian tube and was done so without complication showing a loop of tube that was obtained with a Falope ring. The same procedure was performed on the left side where the applicator was used to apply the Falope ring on the left isthmic region and was done so without complication. Hemostasis was obtained. Visualization of the 8 mm trocar site appeared to show what appeared to be an umbilical omental hernia with no bowel located within the herniated region. From this point there were no other abnormalities located in the abdominal or pelvic region. From this point, all instruments were then removed from the patient's abdominal region and incisions were closed with 4-0 Monocryl suture. Hemostasis was obtained at this time. The patient was then taken out of anesthesia and was then taken to the recovery room in stable condition. All instruments and laps were accounted for x2.
== END 2021-07-06 11:20 | disposition home or self-care (01) ==
LOC: SDC 06:36
PROVIDERS: ATTEND Obstetrics & Gynecology
DX: Z30.2 Encounter for sterilization (principal)
CPT/HCPCS: 84703; J1100; J1170; J1885; J2175; J2250; J2270; J2405; J2704; J3010; A9270-GY

== ENCOUNTER 2022-04-12 05:59 | Day surgery (SDC) | payer OTHER ==
[2022-04-12] MEDS ORDERED: CLINDAMYCIN-D5W 900 MG/50 ML*** 900 MG/50 ML BAG IV STA (06:13)
[2022-04-12] MEDS ORDERED: Versed 2 MG/2 ML Injection IV ONE ×2 (06:15→07:20)
[2022-04-12] MEDS ORDERED: Transderm Scop 1.5MG Patch TOP ONE (06:15)
[2022-04-12] MEDS ORDERED: Lactated Ringers 1,000 ML IV SCH (06:30)
[2022-04-12] MEDS ORDERED: Zemuron 100 MG/10 ML ONE (07:38)
[2022-04-12] MEDS ORDERED: DIPRIVAN 200 MG/20 ML IV ONE (07:38)
[2022-04-12] MEDS ORDERED: Zofran 4 MG/2 ML VIAL ONE (07:38)
[2022-04-12] MEDS ORDERED: Decadron 4 MG INJ ONE (07:38)
[2022-04-12] MEDS ORDERED: SUBLIMAZE 100 MCG/2 ML ONE ×2 (07:39→09:22)
[2022-04-12] MEDS ORDERED: BRIDION 200MG/2ML IV ONE (07:49)
[2022-04-12] MEDS ORDERED: OFIRMEV 100 ML IV ONE (07:51)
[2022-04-12] MEDS ORDERED: Pre-Attached Lta Kit TP ONE (07:53)
[2022-04-12] MEDS ORDERED: Lactated Ringers 1,000 ML IV ONE ×2 (08:01→08:06)
[2022-04-12] MEDS ORDERED: Sensorcaine 0.25% 10 ML ONE (08:01)
[2022-04-12] MEDS ORDERED: Hydromorphone 1 mg/ml Injection ONE (09:22)
[2022-04-12] MEDS ORDERED: Ephedrine Sulfate 50 MG/ML ONE (09:27)
[2022-04-12] MEDS ORDERED: NORCO 7.5/325 MG TAB ONE (10:45)
[2022-04-12] MEDS ORDERED: NORCO 7.5/325 MG TAB PO ONE (10:46)
[2022-04-12 11:57] VITALS: PULSE 60; O2SAT 99
[2022-04-12 12:00] VITALS: BP 88/53
[2022-04-12 19:09] LABS: Appearance CLEAR (CLEAR); Bilirubin NEGATIVE (NEGATIVE); Blood NEGATIVE Ery/ul (0-5); Glucose NEGATIVE (NEGATIVE); Ketones NEGATIVE (NEGATIVE); Leukocyte Esterase NEGATIVE (NEGATIVE); Nitrite NEGATIVE (NEGATIVE); Protein,Urine Dip 30 (Negative); Specific Gravity 1.025 (1.005-1.025); Urobilinogen NORMAL mg/dL (0-1)
--- NOTE | 2022-04-13 11:35 | OP ---
SURGERY DATE/TIME: 04/12/2022 0804 PREOPERATIVE DIAGNOSES: 1) Right ovarian complex cyst. 2) Menorrhagia. POSTOPERATIVE DIAGNOSES: 1) Left-sided omental adhesion. 2) Menorrhagia. PROCEDURES: 1) Laparoscopic lysis of omental adhesion. 2) Hysteroscopy D&C with NovaSure ablation. SURGEON: Skip Tabares D.O. CLIENT ADVOCATE: Amena Waldron manager surgical. ANESTHESIA: General. ESTIMATED BLOOD LOSS: Minimal. COMPLICATIONS: None. INDICATIONS: The risks, benefits, indications and alternatives of the procedure were reviewed with the patient prior to the procedure. The patient understood the risk of infection, bleeding, bowel injury, bladder injury, ureteral injury, uterine perforation, pelvic infection, thromboembolic disorder associated with this surgery and desires to have this surgery as a possible means to alleviate her current medical condition. DESCRIPTION OF PROCEDURE AND FINDINGS: At this point the patient is taken to the operating room, given general sedation, placed in dorsal lithotomy position, prepped and draped in the usual sterile fashion. A weighted speculum is then placed in the patient's vagina and the anterior lip of the cervix grasped with a single tooth tenaculum where a uterine manipulator was inserted through the endocervical canal as a means to manipulate the uterus. At this point attention was then turned to the patient's abdomen where a 5 mm skin incision was made approximately 2 cm above the umbilicus where a 5 mm trocar and sleeve were advanced under direct visualization where pneumoperitoneum was obtained with 4 liters of CO2 gas. An additional incision was made in the left lower quadrant region where a 5 mm trocar and sleeve were advanced under direct visualization where at this point I surveyed the patient's pelvis and revealed her to have normal ovaries with no cyst that was noted on the right ovary that was previously seen by MRI. The left ovary appeared to be within normal limits as well. She does have a history of bilateral tubal sterilization and there were omental adhesions that were adhesed between the left fallopian tube and the omentum where lysis of adhesions was performed by using the LigaSure. The LigaSure was applied on the junction between the omentum and the left fallopian tube where it was lysed, coagulated, cut and hemostasis was obtained. A survey of the remainder of abdomen and pelvis appeared to be within normal limits with no gross abnormalities that were noted. At this point all instruments were then removed from the patient's abdomen. The incisions were repaired with 4-0 Monocryl suture with subsequent Dermabond. Attention was then turned to the patient's vaginal region where a weighted speculum was then reinserted in the vaginal region and the cervix is grasped with a single tooth tenaculum. Endocervical dilators were advanced to the endocervical canal as a means to dilate the cervix. At this point a 5 mm hysteroscope was then placed in the endocervical region towards the fundal region where visualization appeared to be within normal limits with no gross abnormalities within the uterine canal. From this point the hysteroscope was removed and the curette was then placed into the fundus of the uterus and curettage was performed in all quadrants of the uterus retrieving a mild to moderate amount of endometrial tissue. From this point hemostasis was obtained and NovaSure was then placed through the endocervical region towards the fundal region and retracted approximately 1 cm. It was engaged with a length of 6 cm and a width of 3.4 cm. The machine was turned on for an ablative time of 1 minute and 6 seconds. After complete ablation, the NovaSure was disengaged and removed from the uterine cavity without complication. From this point all instruments were removed from the patient's vaginal region. The patient was then taken out of dorsal lithotomy position, was taken out of anesthesia and was then taken to the recovery room in stable condition. All instruments and laps were accounted for x2.
== END 2022-04-12 10:58 | disposition home or self-care (01) ==
LOC: SDC 05:59
PROVIDERS: ATTEND Obstetrics & Gynecology
DX: K66.0 Peritoneal adhesions (postprocedural) (postinfection) (principal); N83.201 Unspecified ovarian cyst, right side; N92.0 Excessive and frequent menstruation with regular cycle
CPT/HCPCS: 81001; 81025; 87086; J1100; J1170; J2250; J2405; J2704; J3010; A9270-GY

== ENCOUNTER 2023-05-17 20:14 | Emergency (ER) | payer OTHER ==
--- NOTE | 2023-05-17 20:24 | ERPHSYRPT ---
- History of Present Illness Time Seen by Provider: 05/17/23 20:23 Historian: patient Exam Limitations: no limitations Physician History: Patient is a 33-year-old otherwise healthy female presents to our ED for evaluation of chest pain that started while she was driving home from work. Pain worse with deep inspiration. Patient is not on control. No history of PE DVT. Patient reports that she has been experiencing flulike symptoms for the past 1.5 weeks. Patient has a dry cough. Body aches fatigue chills shortness of breath and a frontal headache. Patient otherwise feels well. Known nausea or vomiting no diarrhea no rash. Patient's chest pain is localized no radiation. Patient voices no other complaints or concerns at this time. Portions of this note were created with voice recognition technology. There may be grammatical, spelling, punctuation or sound alike errors Timing/Duration: today Activities at Onset: none Quality: aching Location: substernal, other (Right chest) Chest Pain Radiation: no radiation Severity of Pain-Max: moderate Severity of Pain-Current: mild Modifying Factors: Improves With: nothing, other (Deep inspiration worse this pain) Associated Symptoms: denies symptoms (Patient has had flulike symptoms for 1.5 weeks preceding her chest pain. Chest pain started today) Prior Chest Pain/Cardiac Workup: no prior chest pain Nitro Today/Relief: no nitro taken today Aspirin Treatment Today: no aspirin today Allergies/Adverse Reactions: vancomycin Allergy (Severe, Verified 05/17/23 20:15) Tightness of Throat Penicillins Allergy (Mild, Verified 05/17/23 20:15) Hives amoxicillin Allergy (Verified 05/17/23 20:15) Hives Home Medications: No Reportable Medications [No Reported Medications] 05/17/23 [History] Hx Tetanus, Diphtheria Vaccination/Date Given: Yes Hx Influenza Vaccination/Date Given: No Hx Pneumococcal Vaccination/Date Given: No Travel Risk - Vaccine Status Have you recieved a Covid-19 vaccination: No - Review of Systems Constitutional: No Symptoms, No Fever, No Chills Eyes: No Symptoms Ears, Nose, & Throat: No Symptoms Respiratory: No Symptoms, No Cough, No Dyspnea Cardiac: No Symptoms, No Chest Pain, No Edema, No Syncope Abdominal/Gastrointestinal: No Symptoms, No Abdominal Pain, No Nausea, No Vomiting, No Diarrhea Genitourinary Symptoms: No Symptoms, No Dysuria Musculoskeletal: No Symptoms, No Back Pain, No Neck Pain Skin: No Symptoms, No Rash Neurological: No Symptoms, No Dizziness, No Focal Weakness, No Sensory Changes Psychological: No Symptoms Endocrine: No Symptoms Hematologic/Lymphatic: No Symptoms Immunological/Allergic: No Symptoms All Other Systems: Reviewed and Negative - Past Medical History Pertinent Past Medical History: No Neurological History: No Pertinent History ENT History: No Pertinent History Cardiac History: No Pertinent History Respiratory History: No Pertinent History Endocrine Medical History: No Pertinent History Musculoskeletal History: No Pertinent History GI Medical History: No Pertinent History History: No Pertinent History Psycho-Social History: No Pertinent History Female Reproductive Disorders: No Pertinent History Other Medical History: PT IS HEP C POSITIVE. PT HAS HX OF IV DRUG USE, LAST USED 2 YEARS AGO. 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 PF - Past Surgical History Past Surgical History: Yes Neuro Surgical History: No Pertinent History Cardiac: No Pertinent History Respiratory: No Pertinent History Gastrointestinal: No Pertinent History Genitourinary: No Pertinent History Musculoskeletal: No Pertinent History Female Surgical History: Dilation & Curettage Other Surgical History: 2012 PT HAD A D&C D/T RETAINED PLACENTA - Social History Smoking Status: Never smoker Exposure to second hand smoke: Yes Drug Use: none Patient Lives Alone: No - Nursing Vital Signs Nursing Vital Signs: Initial Vital Signs Blood Pressure 118/71 05/17/23 20:20 Pain Scale Pain Intensity 6 - Physical Exam General Appearance: no apparent distress, alert Eye Exam: PERRL/EOMI, eyes nml inspection Ears, Nose, Throat Exam: normal ENT inspection, TMs normal, pharynx normal, moist mucous membranes Neck Exam: normal inspection, non-tender, supple, full range of motion Respiratory Exam: normal breath sounds, lungs clear, airway intact, No respiratory distress Cardiovascular Exam: regular rate/rhythm, normal heart sounds, normal peripheral pulses Gastrointestinal/Abdomen Exam: soft, No tenderness, No mass Back Exam: normal inspection, No CVA tenderness, No vertebral tenderness Extremity Exam: normal inspection, normal range of motion Neurologic Exam: alert, oriented x 3, cooperative, normal mood/affect, sensation nml, No motor deficits Skin Exam: normal color, warm, dry Lymphatic Exam: No adenopathy SpO2 Interpretation: normal SpO2: 97 O2 Delivery: Room Air - Course Nursing assessment & vital signs reviewed: Yes EKG Interpreted by Me: RATE (97), NORMAL AXIS, NORMAL INTERVALS, NORMAL QRS - Radiology Exams Chest X-ray Interpretation: Interpreted by me (No acute findings on chest x-ray) Ordered Tests: Active Orders 24 hr Category Date Time Status Phlebotomy Instructor STAT Care 05/17/23 20:21 Active EKG-ER Only STAT Care 05/17/23 20:20 Active IV Insertion STAT Care 05/17/23 20:20 Active Pulse Oximetry (ED) STAT Care 05/17/23 20:20 Active CHEST 1 VIEW (PORTABLE) Stat Exams 05/17/23 21:14 Taken CBC W DIFF Stat Lab 05/17/23 20:42 Completed CMP Stat Lab 05/17/23 20:42 Completed D-DIMER QUANTITATIVE Stat Lab 05/17/23 20:42 Completed HCG QUALITATIVE, URINE Stat Lab 05/17/23 21:36 Completed TROPONIN Q4H Lab 05/17/23 20:42 Completed TROPONIN Q4H Lab 05/18/23 00:30 Ordered TROPONIN Q4H Lab 05/18/23 04:30 Ordered TROPONIN Stat Lab 05/17/23 22:20 Completed UA W/RFX UR CULTURE Stat Lab 05/17/23 21:10 Completed Medication Summary Discontinued Medications Generic Name Dose Route Start Last Admin Trade Name Freq PRN Reason Stop Dose Admin Ibuprofen 600 mg 05/17/23 20:49 05/17/23 20:52 Ibuprofen 600 Mg Tablet PO 05/17/23 20:50 600 mg STAT ONE Administration Ibuprofen Confirm 05/17/23 20:51 Ibuprofen 600 Mg Tablet Administered 05/17/23 20:52 Dose 600 mg .ROUTE .STK-MED ONE Lab/Rad Data: Laboratory Result Diagrams 05/17/23 20:42 05/17/23 20:42 Laboratory Results 05/17/23 05/17/23 05/17/23 Range/Units 22:20 21:36 21:35 WBC (4.0-10.5) x10^3/uL RBC (4.1-5.4) x10^6/uL Hgb (12.0-16.0) g/dL Hct (35-47) % MCV (78-100) fL MCH (26-32) pg MCHC (32-36) g/dL RDW (11.5-14.0) % Plt Count (150-450) x10^3/uL MPV (7.5-11.0) fL Gran % (36.0-66.0) % Immature Gran % (Auto) (0.00-0.4) % Nucleat RBC Rel Count (0.00-0.1) % Eos # (Auto) (0-0.5) x10^3/uL Immature Gran # (Auto) (0.00-0.03) x10^3u/L Absolute Lymphs (auto) (1.0-4.6) x10^3/uL Absolute Monos (auto) (0.0-1.3) x10^3/uL Absolute Nucleated RBC (0.00-0.01) x10^3u/L Lymphocytes % (24.0-44.0) % Monocytes % (0.0-12.0) % Eosinophils % (0.00-5.0) % Basophils % (0.0-0.4) % Absolute Granulocytes (1.4-6.9) x10^3/uL Basophils # (0-0.4) x10^3/uL D-Dimer (0.0-0.50) mg/L Sodium (137-145) mmol/L Potassium (3.5-5.1) mmol/L Chloride (98-107) mmol/L Carbon Dioxide (22-30) mmol/L Anion Gap (5-15) MEQ/L BUN (7-17) mg/dL Creatinine (0.52-1.04) mg/dL Estimated GFR ML/MIN Glucose (74-106) mg/dL Calcium (8.4-10.2) mg/dL Total Bilirubin (0.2-1.3) mg/dL AST (14-36) U/L ALT (0-35) U/L Alkaline Phosphatase (38-126) U/L Troponin I < 0.012 (0.000-0.034) ng/mL Serum Total Protein (6.3-8.2) g/dL Albumin (3.5-5.0) g/dL Urine Color (Yellow) Urine Appearance (Clear) Urine pH (4.6-8.0) Ur Specific [place] (1.005-1.030) Urine Protein (Negative) Urine Glucose (UA) (Negative) mg/dL Urine Ketones (Negative) Urine Blood (Negative) Urine Nitrite (Negative) Urine Bilirubin (Negative) Urine Urobilinogen (0.2) mg/dL Ur Leukocyte Esterase (Negative) U Hyaline Cast (Auto) (0-2) /LPF Urine Microscopic RBC (0-5) /HPF Urine Microscopic WBC (0-5) /HPF Ur Epithelial Cells (None Seen) /HPF Urine Bacteria (None Seen) /HPF Urine Culture Reflexed (NO) Urine HCG, Qual NEGATIVE (NEGATIVE) Influenza Type A Ag NEGATIVE (NEGATIVE) Influenza Type B Ag POSITIVE (NEGATIVE) RSV (PCR) NEGATIVE (NEGATIVE) SARS-CoV-2 (PCR) NEGATIVE (NEGATIVE) 05/17/23 05/17/23 05/17/23 Range/Units 21:10 20:42 20:42 WBC (4.0-10.5) x10^3/uL RBC (4.1-5.4) x10^6/uL Hgb (12.0-16.0) g/dL Hct (35-47) % MCV (78-100) fL MCH (26-32) pg MCHC (32-36) g/dL RDW (11.5-14.0) % Plt Count (150-450) x10^3/uL MPV (7.5-11.0) fL Gran % (36.0-66.0) % Immature Gran % (Auto) (0.00-0.4) % Nucleat RBC Rel Count (0.00-0.1) % Eos # (Auto) (0-0.5) x10^3/uL Immature Gran # (Auto) (0.00-0.03) x10^3u/L Absolute Lymphs (auto) (1.0-4.6) x10^3/uL Absolute Monos (auto) (0.0-1.3) x10^3/uL Absolute Nucleated RBC (0.00-0.01) x10^3u/L Lymphocytes % (24.0-44.0) % Monocytes % (0.0-12.0) % Eosinophils % (0.00-5.0) % Basophils % (0.0-0.4) % Absolute Granulocytes (1.4-6.9) x10^3/uL Basophils # (0-0.4) x10^3/uL D-Dimer 0.25 (0.0-0.50) mg/L Sodium (137-145) mmol/L Potassium (3.5-5.1) mmol/L Chloride (98-107) mmol/L Carbon Dioxide (22-30) mmol/L Anion Gap (5-15) MEQ/L BUN (7-17) mg/dL Creatinine (0.52-1.04) mg/dL Estimated GFR ML/MIN Glucose (74-106) mg/dL Calcium (8.4-10.2) mg/dL Total Bilirubin (0.2-1.3) mg/dL AST (14-36) U/L ALT (0-35) U/L Alkaline Phosphatase (38-126) U/L Troponin I < 0.012 (0.000-0.034) ng/mL Serum Total Protein (6.3-8.2) g/dL Albumin (3.5-5.0) g/dL Urine Color Yellow (Yellow) Urine Appearance Clear (Clear) Urine pH 6.0 (4.6-8.0) Ur Specific [place] 1.025 (1.005-1.030) Urine Protein Negative (Negative) Urine Glucose (UA) Negative (Negative) mg/dL Urine Ketones 15 A (Negative) Urine Blood Negative (Negative) Urine Nitrite Negative (Negative) Urine Bilirubin Negative (Negative) Urine Urobilinogen 0.2 (0.2) mg/dL Ur Leukocyte Esterase Negative (Negative) U Hyaline Cast (Auto) NONE SEEN (0-2) /LPF Urine Microscopic RBC 0-2 (0-5) /HPF Urine Microscopic WBC 0-2 (0-5) /HPF Ur Epithelial Cells Rare (None Seen) /HPF Urine Bacteria None Seen (None Seen) /HPF Urine Culture Reflexed NO (NO) Urine HCG, Qual (NEGATIVE) Influenza Type A Ag (NEGATIVE) Influenza Type B Ag (NEGATIVE) RSV (PCR) (NEGATIVE) SARS-CoV-2 (PCR) (NEGATIVE) 05/17/23 05/17/23 Range/Units 20:42 20:42 WBC 5.9 (4.0-10.5) x10^3/uL RBC 3.80 L (4.1-5.4) x10^6/uL Hgb 11.6 L (12.0-16.0) g/dL Hct 34.5 L (35-47) % MCV 90.8 (78-100) fL MCH 30.5 (26-32) pg MCHC 33.6 (32-36) g/dL RDW 11.8 (11.5-14.0) % Plt Count 179 (150-450) x10^3/uL MPV 9.8 (7.5-11.0) fL Gran % 82.3 H (36.0-66.0) % Immature Gran % (Auto) 0.3 (0.00-0.4) % Nucleat RBC Rel Count 0.0 (0.00-0.1) % Eos # (Auto) 0 (0-0.5) x10^3/uL Immature Gran # (Auto) 0.02 (0.00-0.03) x10^3u/L Absolute Lymphs (auto) 0.88 L (1.0-4.6) x10^3/uL Absolute Monos (auto) 0.14 (0.0-1.3) x10^3/uL Absolute Nucleated RBC 0.00 (0.00-0.01) x10^3u/L Lymphocytes % 15.0 L (24.0-44.0) % Monocytes % 2.4 (0.0-12.0) % Eosinophils % 0.0 (0.00-5.0) % Basophils % 0.0 (0.0-0.4) % Absolute Granulocytes 4.83 (1.4-6.9) x10^3/uL Basophils # 0 (0-0.4) x10^3/uL D-Dimer (0.0-0.50) mg/L Sodium 136 L (137-145) mmol/L Potassium 3.5 (3.5-5.1) mmol/L Chloride 103 (98-107) mmol/L Carbon Dioxide 22 (22-30) mmol/L Anion Gap 13.8 (5-15) MEQ/L BUN 15 (7-17) mg/dL Creatinine 0.43 L (0.52-1.04) mg/dL Estimated GFR 133.3 ML/MIN Glucose 100 (74-106) mg/dL Calcium 8.9 (8.4-10.2) mg/dL Total Bilirubin 0.30 (0.2-1.3) mg/dL AST 32 (14-36) U/L ALT 27 (0-35) U/L Alkaline Phosphatase 50 (38-126) U/L Troponin I (0.000-0.034) ng/mL Serum Total Protein 7.6 (6.3-8.2) g/dL Albumin 4.5 (3.5-5.0) g/dL Urine Color (Yellow) Urine Appearance (Clear) Urine pH (4.6-8.0) Ur Specific [place] (1.005-1.030) Urine Protein (Negative) Urine Glucose (UA) (Negative) mg/dL Urine Ketones (Negative) Urine Blood (Negative) Urine Nitrite (Negative) Urine Bilirubin (Negative) Urine Urobilinogen (0.2) mg/dL Ur Leukocyte Esterase (Negative) U Hyaline Cast (Auto) (0-2) /LPF Urine Microscopic RBC (0-5) /HPF Urine Microscopic WBC (0-5) /HPF Ur Epithelial Cells (None Seen) /HPF Urine Bacteria (None Seen) /HPF Urine Culture Reflexed (NO) Urine HCG, Qual (NEGATIVE) Influenza Type A Ag (NEGATIVE) Influenza Type B Ag (NEGATIVE) RSV (PCR) (NEGATIVE) SARS-CoV-2 (PCR) (NEGATIVE) - Progress Progress: improved Air Movement: good Progress Note: Patient a 33-year-old female presents to the emergency department for evaluation of pleuritic chest pain. EKG shows normal sinus rhythm. No ischemic changes. D-dimer negative. Troponin negative x 2. Preliminary read on chest x-ray negative for pneumonia. CBC CMP essentially nonremarkable. UA negative for UTI. COVID test negative RSV negative influenza B positive. Vital stable. Patient agrees to follow-up with primary care doctor within 48 hours for evaluation. Due to patient symptomology she is out of the therapeutic window for Tamiflu. Supportive care at this time patient instructed on the importance of hydration and monitoring her hydration via urine volume frequency and color. Patient to monitor her vitals and heart rate at home as another indicator of hydration status Portions of this note were created with voice recognition technology. There may be grammatical, spelling, punctuation or sound alike errors Complexity problem addressed is moderate acute complicated No critical care time Complaints of data reviewed and analyzed is moderate. Test ordered test reviewed. Results analyzed and correlated clinically with history and physical exam. Risk of complication and or risk of morbidity/mortality of patient management is low. Vital stable. Time spent to discharge patient is approximately 15 minutes. Plan of care established for shared decision making. No social determinants of health present to impede follow-up. Portions of this note were created with voice recognition technology. There may be grammatical, spelling, punctuation or sound alike errors 05/17/23 23:19 Blood Culture(s) Obtained: No Antibiotics given: No Counseled pt/family regarding: lab results, diagnosis, need for follow-up, rad results - Departure Departure Disposition: Home Clinical Impression: Fever, Chest pain, pleuritic, Influenza B Condition: Stable Critical Care Time: No Referrals: DOCTOR,NO FAMILY [Primary Care Provider] - Follow up/PCP as directed CAROLE RAMEY DO [ACTIVE STAFF] - Follow up/PCP as directed Additional Instructions: Discharge/Care Plan RAFAEL CAICEDO was seen on 05/17/23 in the Emergency Room. The patient was counseled regarding Diagnosis,Lab results, Imaging studies, need for follow up and when to return to the Emergency Room. Prescriptions given: Discharge Note I have spoken with the patient and/or caregivers. I have explained the patient's condition, diagnosis and treatment plan based on the information available to me at this time. I have answered the patient's and/or caregiver's questions and addressed any concerns. The patient and/or caregivers have as good understanding of the patient's diagnosis, condition and treatment plan as can be expected at this point. The vital signs have been stable. The patient's condition is stable and appropriate for discharge from the emergency department. The patient will pursue further outpatient evaluation with the primary care physician or other designated or consulting physician as outlined in the discharge instructions. The patient and/or caregivers are agreeable to this plan of care and follow-up instructions have been explained in detail. The patient and/or caregivers have received these instruction. The patient/and or caregivers are aware that any significant change in condition or worsening of symptoms should prompt an immediate return to this or the closest emergency department or call 911.
[2023-05-17 20:27] VITALS: TEMP 101.6
[2023-05-17 20:45] LABS: Absolute Neutrophil Ct (ANC) 4.83 x10^3/uL (1.4-6.9); Basophil (Absolute #) 0 x10^3/uL (0-0.4); Eosinophil (Absolute #) 0 x10^3/uL (0-0.5); Hematocrit 34.5 % (35-47); Hemoglobin 11.6 g/dL (12.0-16.0); IMMATURE GRAN # 0.02 x10^3u/L (0.00-0.03); IMMATURE GRAN % 0.3 % (0.00-0.4); Lymphocyte (Absolute #) 0.88 x10^3/uL (1.0-4.6); Mean Cell Volume 90.8 fL (78-100); Mean Corpuscular Hemoglobin 30.5 pg (26-32); Mean Corpuscular Hgb Concent. 33.6 g/dL (32-36); Mean Platelet Volume 9.8 fL (7.5-11.0); Monocyte (Absolute #) 0.14 x10^3/uL (0.0-1.3); Monocytes % 2.4 % (0.0-12.0); Neutrophil % 82.3 % (36.0-66.0); Platelet Count 179 x10^3/uL (150-450); Red Cell Distribution Width 11.8 % (11.5-14.0); White Blood Count 5.9 x10^3/uL (4.0-10.5)
[2023-05-17] MEDS ORDERED: MOTRIN 600 MG PO ONE (20:49)
[2023-05-17] MEDS ORDERED: MOTRIN 600 MG ONE (20:51)
[2023-05-17 20:58] LABS: ALBUMIN 4.5 g/dL (3.5-5.0); ANION GAP 13.8 MEQ/L (5-15); BILIRUBIN,TOTAL 0.3 mg/dL (0.2-1.3); Calcium 8.9 mg/dL (8.4-10.2); Creatinine 1 0.43 mg/dL (0.52-1.04); EST GLOMERULAR FILTRATION RATE 133.3 ML/MIN; Potassium 3.5 mmol/L (3.5-5.1); Total Protein 7.6 g/dL (6.3-8.2)
[2023-05-17 21:43] LABS: HCG URINE TEST NEGATIVE (NEGATIVE)
[2023-05-17 21:45] LABS: Appearance Clear (Clear); Bacteria None Seen /HPF (None Seen); Bilirubin Negative (Negative); Blood Negative (Negative); Epithelial Cells Rare /HPF (None Seen); Glucose, Urine Negative (Negative); Hyaline Casts NONE SEEN /LPF (0-2); Ketones 15 (Negative); Leukocyte Esterase Negative (Negative); Nitrite Negative (Negative); Protein,Urine Dip Negative (Negative); RBC 0-2 /HPF (0-5); Specific Gravity 1.025 (1.005-1.030); Urobilinogen 0.2 mg/dL (0.2); WBC 0-2 /HPF (0-5)
[2023-05-17 21:46] LABS: ADD URINE CULTURE? NO (NO)
[2023-05-17 22:20] LABS: INFLUENZA A NEGATIVE (NEGATIVE); RESPIRATORY SYNCTIAL VIRUS NEGATIVE (NEGATIVE); SARS-CoV-2 Xpert Express NEGATIVE (NEGATIVE)
[2023-05-17 22:26] LABS: INFLUENZA B POSITIVE (NEGATIVE)
[2023-05-17 22:58] VITALS: O2SAT 97
[2023-05-17 23:06] VITALS: BP 95/61; PULSE 102; RESP 15
--- NOTE | 2023-05-18 08:44 | XRAY ---
Indication: Right chest pain. Comparison: June 07, 2021 Portable chest demonstrates new right middle lobe infiltrate versus atelectasis. Remaining heart and lungs normal. Bony thorax intact again with small left humeral head bone island. Comment: Right lung finding not reported by interpreting ER clinician. Telephone report given to Dr. Guerrero at 0840 hrs. on May 18, 2023
== END 2023-05-17 23:59 | disposition home or self-care (01) ==
LOC: ED 20:14
DX: J10.1 Influenza due to other identified influenza virus with other respiratory manifestations (principal); R50.9 Fever, unspecified; R07.81 Pleurodynia; R91.8 Other nonspecific abnormal finding of lung field; R05.1 Acute cough; M79.10 Myalgia, unspecified site; R53.83 Other fatigue; R06.02 Shortness of breath; R51.9 Headache, unspecified; Z79.52 Long term (current) use of systemic steroids; Z28.310 Unvaccinated for COVID-19
CPT/HCPCS: 0241U; 36000; 36415; 71045; 80053; 81001; 81025; 84484; 85025; 85379; 93005; 93041; 94760; 99284; A9270-GY

== ENCOUNTER 2023-12-30 12:08 | Emergency (ER) | payer OTHER ==
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
[2023-12-30] MEDS ORDERED: Adacel Vial IM ONE (13:19)
[2023-12-30] MEDS ORDERED: OXYCODONE-ACETAMINOPHEN 10-325 ONE (13:19)
[2023-12-30] MEDS: OXYCODONE-ACETAMINOPHEN 10-325 PO STA (13:21)
[2023-12-30] MEDS: Adacel Vial IM ONE (13:21)
[2023-12-30 14:27] VITALS: TEMP 97.8
[2023-12-30 15:26] VITALS: BP 114/78; PULSE 80; RESP 18
--- NOTE | 2023-12-30 15:28 | XRAY ---
CLINICAL HISTORY: dog bite looking f puncture of bone COMPARISON: none TECHNIQUE: A CT scan of the right lower extremity was performed without IV contrast. Coronal and sagittal reconstructive images were also obtained. One of the following dose reduction techniques was utilized for this exam.Automated exposure control, adjustment of the mA and/or kV according to patient size, and use of iterative reconstruction. FINDINGS: There is evidence of soft tissue injury seen at the anterior-lateral aspect of the right leg associated with surgical emphysema that extends to the intermuscular plan, regional subcutaneous fat stranding is noted. No evidence of bone injury. Unremarkable Ankle joint articulating bone with normal joint space. No evidence of lytic or sclerotic bone lesions. IMPRESSION: Evidence of soft tissue injury seen at the anterior-lateral aspect of the right leg associated with surgical emphysema that extends to the intermuscular plan, regional subcutaneous fat stranding is noted. [facility] ER was called at [phone] at 02:20 PM [employer], 12/30/2023 and results were verbally communicated Nurse Tri Electronically Signed by: Talia Winchester MD. (12/30/2023 15:23:55 EDT)
[2023-12-30 15:42] VITALS: O2SAT 97
== END 2023-12-30 15:50 | disposition home or self-care (01) ==
LOC: EEVIPCON 12:08 → ED 12:08
DX: S90.571A Other superficial bite of ankle, right ankle, initial encounter (principal); W54.0XXA Bitten by dog, initial encounter; Z79.899 Other long term (current) drug therapy; Z23 Encounter for immunization
CPT/HCPCS: 73700; 90471; 90715; 99283; A9270-GY

== ENCOUNTER 2024-03-19 12:19 | Emergency (ER) | payer OTHER ==
[2024-03-19] MEDS ORDERED: Sodium Chloride 0.9% 1000 ML 1,000 ML ONE (12:40)
[2024-03-19] MEDS ORDERED: Zofran 4 MG/2 ML VIAL ONE (12:40)
[2024-03-19] MEDS ORDERED: TORAdol 30 mg Injection ONE (12:40)
[2024-03-19 12:42] VITALS: RESP 18; TEMP 97.7; O2SAT 100
[2024-03-19] MEDS: Zofran 4 MG/2 ML VIAL IV ONE (12:42)
[2024-03-19] MEDS: TORAdol 30 mg Injection IV ONE (12:42)
[2024-03-19] MEDS: Sodium Chloride 0.9% 1000 ML 1,000 ML IV STA (12:42)
[2024-03-19 13:00] LABS: BASOPHIL % 0.2 % (0.1-1.2); Basophil (Absolute #) 0.02 x10^3/uL (0.01-0.08); Eosinophil % 0.2 % (0.7-5.8); Eosinophil (Absolute #) 0.02 x10^3/uL (0.04-0.36); Hemoglobin 12.9 g/dL (11.2-15.7); IMMATURE GRAN # 0.04 x10^3u/L (0.001-0.031); IMMATURE GRAN % 0.4 % (0.001-0.429); Lymphocyte (Absolute #) 1.05 x10^3/uL (1.18-3.74); Lymphocytes % 10.8 % (19.3-51.7); Mean Cell Volume 95.1 fL (79.4-94.8); Mean Corpuscular Hemoglobin 31.5 pg (25.6-32.2); Mean Corpuscular Hgb Concent. 33.1 g/dL (32.2-35.5); Mean Platelet Volume 9.8 fL (9.4-12.3); Monocyte (Absolute #) 0.67 x10^3/uL (0.24-0.86); Monocytes % 6.9 % (4.7-12.5); Neutrophil % 81.5 % (34.0-71.1); Platelet Count 261 x10^3/uL (182-369); Red Cell Distribution Width 12.8 % (11.7-14.4); White Blood Count 9.7 x10^3/uL (3.98-10.04)
[2024-03-19 13:13] LABS: HCG URINE TEST NEGATIVE (NEGATIVE)
[2024-03-19 13:13] LABS: ALBUMIN 4.5 g/dL (3.5-5.0); ANION GAP 15.4 MEQ/L (5-15); BILIRUBIN,TOTAL 0.8 mg/dL (0.2-1.3); Calcium 9.4 mg/dL (8.4-10.2); Creatinine 1 0.54 mg/dL (0.52-1.04); EST GLOMERULAR FILTRATION RATE 125.4 ML/MIN; Potassium 3.9 mmol/L (3.5-5.1); Total Protein 7.5 g/dL (6.3-8.2)
[2024-03-19 13:15] LABS: Appearance Cloudy (Clear); Bacteria None Seen /HPF (None Seen); Bilirubin Negative (Negative); Blood Negative (Negative); Epithelial Cells Moderate /HPF (None Seen); Glucose, Urine Negative (Negative); Hyaline Casts NONE SEEN /LPF (0-2); Ketones Negative (Negative); Leukocyte Esterase Negative (Negative); Nitrite Negative (Negative); Ph 5.5 (4.6-8.0); Protein,Urine Dip Negative (Negative); RBC 0-2 /HPF (0-5); Specific Gravity 1.025 (1.005-1.030); Urobilinogen 0.2 mg/dL (0.2)
[2024-03-19] MEDS ORDERED: MORPHINE SULFATE 2 MG INJ ONE (14:27)
[2024-03-19] MEDS: MORPHINE SULFATE 2 MG INJ IV ONE (14:28)
--- NOTE | 2024-03-19 14:33 | ERPHSYRPT ---
- History of Present Illness Time Seen by Provider: 03/19/24 12:45 Historian: patient Exam Limitations: no limitations Patient Subjective Stated Complaint: pt here for pain to lower right side sudden onset this am with some nausea, no vomiting, Triage Nursing Assessment: pt alert, walked in, resp easy, skin w/dp. abd soft, tender to right side, moves all ext well, no edema Physician History: 34-year-old female presents to our ED for evaluation of right lower quadrant pain. Pain started this morning. Pain associate with nausea and vomiting. Pain described as an ache that is localized no radiation no trauma no fever no diarrhea no rash no nausea no vomiting. Symptoms are mild to moderate in intensity. Pain worse with palpation pain improved with rest. Patient denies history of trauma. No urinary symptomology. Patient's appendix is still intact. Patient reports he is otherwise healthy. She voices no other complaints or concerns at this time. Portions of this note were created with voice recognition technology. There may be grammatical, spelling, punctuation or sound alike errors Timing/Duration: today Activities at Onset: none Quality: aching Abdominal Pain Onset Location: RUQ Pain Radiation: no radiation Severity of Pain-Max: moderate Severity of Pain-Current: mild Modifying Factors: Improves With: palpation Associated Symptoms: denies symptoms Previous symptoms: no prior history Allergies/Adverse Reactions: vancomycin Allergy (Severe, Verified 03/19/24 12:32) Tightness of Throat Penicillins Allergy (Mild, Verified 03/19/24 12:32) Hives amoxicillin Allergy (Verified 03/19/24 12:32) Hives Hx Tetanus, Diphtheria Vaccination/Date Given: No Hx Influenza Vaccination/Date Given: No Hx Pneumococcal Vaccination/Date Given: No Immunizations Up to Date: Yes Travel Risk - International Travel Have you traveled outside of the country in past 3 weeks: No - Emerging Infectious Disease Are you exhibiting symptoms associated with any current EIDs: Yes Symptoms: Abdominal Pain - Review of Systems Constitutional: No Symptoms, No Fever, No Chills Eyes: No Symptoms Ears, Nose, & Throat: No Symptoms Respiratory: No Symptoms, No Cough, No Dyspnea Cardiac: No Symptoms, No Chest Pain, No Edema, No Syncope Abdominal/Gastrointestinal: No Symptoms, No Abdominal Pain, No Nausea, No Vomiting, No Diarrhea Genitourinary Symptoms: No Symptoms, No Dysuria Musculoskeletal: No Symptoms, No Back Pain, No Neck Pain Skin: No Symptoms, No Rash Neurological: No Symptoms, No Dizziness, No Focal Weakness, No Sensory Changes Psychological: No Symptoms Endocrine: No Symptoms Hematologic/Lymphatic: No Symptoms Immunological/Allergic: No Symptoms All Other Systems: Reviewed and Negative - Past Medical History Pertinent Past Medical History: No Neurological History: No Pertinent History ENT History: No Pertinent History Cardiac History: No Pertinent History Respiratory History: No Pertinent History Endocrine Medical History: No Pertinent History Musculoskeletal History: No Pertinent History GI Medical History: No Pertinent History History: No Pertinent History Psycho-Social History: No Pertinent History Female Reproductive Disorders: No Pertinent History Other Medical History: PT IS HEP C POSITIVE. PT HAS HX OF IV DRUG USE, LAST USED 2 YEARS AGO. 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 PF - Past Surgical History Past Surgical History: Yes Neuro Surgical History: No Pertinent History Cardiac: No Pertinent History Respiratory: No Pertinent History Gastrointestinal: No Pertinent History Genitourinary: No Pertinent History Musculoskeletal: No Pertinent History Female Surgical History: Dilation & Curettage, Tubal Ligation Other Surgical History: 2012 PT HAD A D&C D/T RETAINED PLACENTA - Female History Hx Last Menstrual Period: 2 weeks ago Hx Now: No - Social History Smoking Status: Never smoker Exposure to second hand smoke: No Drug Use: none Patient Lives Alone: No - Social Determinants of Health Will the patient participate in the screening: Yes Do you worry about a steady place to live?: No Do you have any problems with any of the following?: No known problems In the past 12 months,have you had to go without utilities?: No Transportation Issues: No Has anyone in your support network made you feel unsafe?: No Have you or anyone in your house had to go without enough: No - Nursing Vital Signs Nursing Vital Signs: Initial Vital Signs Pulse Rate 83 03/19/24 12:32 Respiratory Rate 16 03/19/24 12:32 Blood Pressure 115/73 03/19/24 12:32 O2 Sat by Pulse Oximetry 100 03/19/24 12:32 Pain Scale Pain Intensity 5 - Physical Exam General Appearance: no apparent distress, alert Eye Exam: PERRL/EOMI, eyes nml inspection Ears, Nose, Throat Exam: normal ENT inspection, pharynx normal, moist mucous membranes Neck Exam: normal inspection, non-tender, supple, full range of motion Respiratory Exam: normal breath sounds, lungs clear, airway intact, No resp iratory distress Cardiovascular Exam: regular rate/rhythm, normal heart sounds Gastrointestinal/Abdomen Exam: soft, other (Slight right adnexal tenderness. Scant white vaginal discharge. No CMT. No follow odor. No open or draining lesions), No tenderness, No mass Pelvic Exam: normal external exam Back Exam: normal inspection, normal range of motion, No CVA tenderness, No vertebral tenderness Extremity Exam: normal inspection, normal range of motion, pelvis stable Neurologic Exam: alert, oriented x 3, cooperative, normal mood/affect, nml cer ebellar function, sensation nml, No motor deficits Skin Exam: normal color, warm, dry SpO2 Interpretation: normal SpO2: 100 O2 Delivery: Room Air - Course Nursing assessment & vital signs reviewed: Yes - CT Exams Abdomen/Pelvis CT Interpretation: Tele-radiologist Report (Fecal stasis no acute findings) - Radiology Ultrasound Exam Pelvis Ultrasound: tele radiology report (No ovarian torsion. Small right ovarian cyst. Nabothian cyst.) Ordered Tests: Active Orders 24 hr Category Date Time Status IV Insertion STAT Care 03/19/24 12:37 Active ABDOMEN AND PELVIS W/0 CONTRAS [CT] Stat Exams 03/19/24 12:38 Completed PELVIC [US] Stat Exams 03/19/24 14:59 Taken CBC W DIFF Stat Lab 03/19/24 12:59 Completed CMP Stat Lab 03/19/24 12:59 Completed HCG QUALITATIVE, URINE Stat Lab 03/19/24 12:39 Completed LIPASE Stat Lab 03/19/24 12:59 Completed Lactic Acid Stat Lab 03/19/24 12:37 Completed UA W/RFX UR CULTURE Stat Lab 03/19/24 12:39 Completed Medication Summary Discontinued Medications Generic Name Dose Route Start Last Admin Trade Name Freq PRN Reason Stop Dose Admin Sodium Chloride 1,000 mls @ 999 mls/hr 03/19/24 12:37 03/19/24 13:45 Sodium Chloride 0.9% 1000 Ml IV 03/19/24 13:37 Infused .Q1H1M STA Infusion Sodium Chloride Confirm 03/19/24 12:40 Sodium Chloride 0.9% 1000 Ml Administered 03/19/24 12:41 Dose 1,000 mls @ ud .ROUTE .STK-MED ONE Ketorolac Tromethamine 30 mg 03/19/24 12:37 03/19/24 12:42 Ketorolac Tromethamine 30 Mg/Ml Inj IV 03/19/24 12:38 30 mg STAT ONE Administration Ketorolac Tromethamine Confirm 03/19/24 12:40 Ketorolac Tromethamine 30 Mg/Ml Inj Administered 03/19/24 12:41 Dose 30 mg .ROUTE .STK-MED ONE Morphine Sulfate 2 mg 03/19/24 14:25 03/19/24 14:28 Morphine Sulfate 2 Mg/Ml Inj IV 03/19/24 14:26 2 mg STAT ONE Administration Morphine Sulfate Confirm 03/19/24 14:27 Morphine Sulfate 2 Mg/Ml Inj Administered 03/19/24 14:28 Dose 2 mg .ROUTE .STK-MED ONE Ondansetron HCl 4 mg 03/19/24 12:37 03/19/24 12:42 Ondansetron Hcl 4 Mg/2 Ml Vial IV 03/19/24 12:38 4 mg STAT ONE Administration Ondansetron HCl Confirm 03/19/24 12:40 Ondansetron Hcl 4 Mg/2 Ml Vial Administered 03/19/24 12:41 Dose 4 mg .ROUTE .STK-MED ONE Lab/Rad Data: Laboratory Result Diagrams 03/19/24 12:59 03/19/24 12:59 Laboratory Results 03/19/24 03/19/24 03/19/24 Range/Units 15:14 12:59 12:59 WBC 9.7 (3.98-10.04) x10^3/uL RBC 4.10 (3.93-5.22) x10^6/uL Hgb 12.9 (11.2-15.7) g/dL Hct 39.0 (34.1-44.9) % MCV 95.1 H (79.4-94.8) fL MCH 31.5 (25.6-32.2) pg MCHC 33.1 (32.2-35.5) g/dL RDW 12.8 (11.7-14.4) % Plt Count 261 (182-369) x10^3/uL MPV 9.8 (9.4-12.3) fL Gran % 81.5 H (34.0-71.1) % Immature Gran % (Auto) 0.4 (0.001-0.429) % Nucleat RBC Rel Count 0.0 (0.00-0.2) % Eos # (Auto) 0.02 L (0.04-0.36) x10^3/uL Immature Gran # (Auto) 0.04 H (0.001-0.031) x10^3u/L Absolute Lymphs (auto) 1.05 L (1.18-3.74) x10^3/uL Absolute Monos (auto) 0.67 (0.24-0.86) x10^3/uL Absolute Nucleated RBC 0.00 (0.00-0.012) x10^3u/L Lymphocytes % 10.8 L (19.3-51.7) % Monocytes % 6.9 (4.7-12.5) % Eosinophils % 0.2 L (0.7-5.8) % Basophils % 0.2 (0.1-1.2) % Absolute Granulocytes 7.90 H (1.56-6.13) x10^3/uL Basophils # 0.02 (0.01-0.08) x10^3/uL Sodium 140 (135-145) mmol/L Potassium 3.9 (3.5-5.1) mmol/L Chloride 106 (98-107) mmol/L Carbon Dioxide 22 (22-30) mmol/L Anion Gap 15.4 H (5-15) MEQ/L BUN 20 H (7-17) mg/dL Creatinine 0.54 (0.52-1.04) mg/dL Estimated GFR 125.4 ML/MIN Glucose 98 (74-106) mg/dL Lactic Acid (0.4-2.0) Calcium 9.4 (8.4-10.2) mg/dL Total Bilirubin 0.80 (0.2-1.3) mg/dL AST 39 H (14-36) U/L ALT 43 H (0-35) U/L Alkaline Phosphatase 45 (38-126) U/L Serum Total Protein 7.5 (6.3-8.2) g/dL Albumin 4.5 (3.5-5.0) g/dL Lipase 50 (23-300) U/L Urine Color (Yellow) Urine Appearance (Clear) Urine pH (4.6-8.0) Ur Specific [place] (1.005-1.030) Urine Protein (Negative) Urine Glucose (UA) (Negative) mg/dL Urine Ketones (Negative) Urine Blood (Negative) Urine Nitrite (Negative) Urine Bilirubin (Negative) Urine Urobilinogen (0.2) mg/dL Ur Leukocyte Esterase (Negative) U Hyaline Cast (Auto) (0-2) /LPF Urine Microscopic RBC (0-5) /HPF Urine Microscopic WBC (0-5) /HPF Ur Epithelial Cells (None Seen) /HPF Urine Bacteria (None Seen) /HPF Urine Culture Reflexed (NO) Urine HCG, Qual (NEGATIVE) Vaginal Emi Group NOT DETECTED (NEGATIVE) Emi species NOT DETECTED (NEGATIVE) T. vaginalis (PCR) NOT DETECTED (NEGATIVE) Bact vaginosis (PCR) NEGATIVE (NEGATIVE) 03/19/24 03/19/24 03/19/24 Range/Units 12:39 12:39 12:37 WBC (3.98-10.04) x10^3/uL RBC (3.93-5.22) x10^6/uL Hgb (11.2-15.7) g/dL Hct (34.1-44.9) % MCV (79.4-94.8) fL MCH (25.6-32.2) pg MCHC (32.2-35.5) g/dL RDW (11.7-14.4) % Plt Count (182-369) x10^3/uL MPV (9.4-12.3) fL Gran % (34.0-71.1) % Immature Gran % (Auto) (0.001-0.429) % Nucleat RBC Rel Count (0.00-0.2) % Eos # (Auto) (0.04-0.36) x10^3/uL Immature Gran # (Auto) (0.001-0.031) x10^3u/L Absolute Lymphs (auto) (1.18-3.74) x10^3/uL Absolute Monos (auto) (0.24-0.86) x10^3/uL Absolute Nucleated RBC (0.00-0.012) x10^3u/L Lymphocytes % (19.3-51.7) % Monocytes % (4.7-12.5) % Eosinophils % (0.7-5.8) % Basophils % (0.1-1.2) % Absolute Granulocytes (1.56-6.13) x10^3/uL Basophils # (0.01-0.08) x10^3/uL Sodium (135-145) mmol/L Potassium (3.5-5.1) mmol/L Chloride (98-107) mmol/L Carbon Dioxide (22-30) mmol/L Anion Gap (5-15) MEQ/L BUN (7-17) mg/dL Creatinine (0.52-1.04) mg/dL Estimated GFR ML/MIN Glucose (74-106) mg/dL Lactic Acid 0.7 (0.4-2.0) Calcium (8.4-10.2) mg/dL Total Bilirubin (0.2-1.3) mg/dL AST (14-36) U/L ALT (0-35) U/L Alkaline Phosphatase (38-126) U/L Serum Total Protein (6.3-8.2) g/dL Albumin (3.5-5.0) g/dL Lipase (23-300) U/L Urine Color Yellow (Yellow) Urine Appearance Cloudy A (Clear) Urine pH 5.5 (4.6-8.0) Ur Specific [place] 1.025 (1.005-1.030) Urine Protein Negative (Negative) Urine Glucose (UA) Negative (Negative) mg/dL Urine Ketones Negative (Negative) Urine Blood Negative (Negative) Urine Nitrite Negative (Negative) Urine Bilirubin Negative (Negative) Urine Urobilinogen 0.2 (0.2) mg/dL Ur Leukocyte Esterase Negative (Negative) U Hyaline Cast (Auto) NONE SEEN (0-2) /LPF Urine Microscopic RBC 0-2 (0-5) /HPF Urine Microscopic WBC 3-5 (0-5) /HPF Ur Epithelial Cells Moderate A (None Seen) /HPF Urine Bacteria None Seen (None Seen) /HPF Urine Culture Reflexed NO (NO) Urine HCG, Qual NEGATIVE (NEGATIVE) Vaginal Emi Group (NEGATIVE) Emi species (NEGATIVE) T. vaginalis (PCR) (NEGATIVE) Bact vaginosis (PCR) (NEGATIVE) - Progress Progress: improved Progress Note: 34-year-old female presents to emergency department for evaluation of right lower quadrant pain. Physical exam reveals some right lower quadrant tenderness both near McBurney's point and at the right ovary. CT abdomen pelvis reveals fecal stasis. However appendix not visualized. No acute findings otherwise. Ultrasound pelvis essentially negative for acute findings. No torsion. Small right ovarian cyst observed measuring approximately 2 cm. I discussed the nonvisualized appendix with patient. I advised her that appendicitis cannot be completely ruled out. However patient has no active pain at this time. Patient advised to be cognizant of the intensity of the pain. If pain begins to worsen patient is to return as we will need to reassess the possibility of any evolving appendicitis. Patient understands the importance of monitoring her pain level at home and returning if symptoms continue/progress. Patient discharged home with 4 [place] pills. A prescription for Toradol forwarded to patient's pharmacy. Patient will try MiraLAX at home for the fecal stasis. She agrees to follow-up with her primary care doctor within 48 hours for reevaluation. We will do a follow-up phone call tomorrow morning to assess patient's progress. Portions of this note were created with voice recognition technology. There may be grammatical, spelling, punctuation or sound alike errors Complexity problem addressed is moderate acute complicated. No critical care time. Complex of data reviewed and analyzed is moderate. Test ordered test reviewed results analyzed and correlated clinically with history and physical exam. Risk of complication and or risk of morbidity/mortality patient management is low. Vital stable. Time spent to discharge patient approximately 20 minutes. Plan of care established for shared decision making. No social determinants of health present to impede follow-up. Portions of this note were created with voice recognition technology. There may be grammatical, spelling, punctuation or sound alike errors 03/19/24 16:34 Counseled pt/family regarding: lab results, diagnosis, need for follow-up, rad results - Departure Departure Disposition: Home Clinical Impression: Diffuse fecal stasis, Right lower quadrant pain, Right ovarian cyst, Nabothian cyst Condition: Stable Critical Care Time: No Referrals: MIGUEL ÁNGEL QUEEN NP [Primary Care Provider] - Follow up/PCP as directed Instructions: Constipation, Adult ED Additional Instructions: Discharge/Care Plan SASCHARAFAEL GUEVARA was seen on 03/19/24 in the Emergency Room. The patient was counseled regarding Diagnosis,Lab results, Imaging studies, need for follow up and when to return to the Emergency Room. Prescriptions given: Discharge Note I have spoken with the patient and/or caregivers. I have explained the patient's condition, diagnosis and treatment plan based on the information available to me at this time. I have answered the patient's and/or caregiver's questions and addressed any concerns. The patient and/or caregivers have as good understanding of the patient's diagnosis, condition and treatment plan as can be expected at this point. The vital signs have been stable. The patient's condition is stable and appropriate for discharge from the emergency department. The patient will pursue further outpatient evaluation with the primary care physician or other designated or consulting physician as outlined in the discharge instructions. The patient and/or caregivers are agreeable to this plan of care and follow-up instructions have been explained in detail. The patient and/or caregivers have received these instruction. The patient/and or caregivers are aware that any significant change in condition or worsening of symptoms should prompt an immediate return to this or the closest emergency department or call 911. Prescriptions: Ketorolac Trometh 10 mg Tab [TORAdol 10 MG TABLET] 10 mg PO TID 5 Days #15 tablet
--- NOTE | 2024-03-19 14:40 | XRAY ---
Indication: Right lower quadrant pain. Multiple contiguous axial images obtained through the abdomen and pelvis without contrast. Comparison: April 24, 2018. Lung bases clear. Heart not enlarged. Noncontrasted stomach and bowel loops appear nonobstructed. Appendix not visualized. Again mild diffuse scattered colonic fecal debris greatest in ascending colon. No free fluid/air. Remaining liver, gallbladder, pancreas, spleen, adrenal glands, kidneys, ureters, bladder, uterus, and aorta are unremarkable for noncontrast exam. Osseous structures intact. Impression: Again mild diffuse fecal stasis. No new/acute findings on this noncontrast exam.
[2024-03-19 16:13] LABS: Candida Group NOT DETECTED (NEGATIVE); Candida glab/krus NOT DETECTED (NEGATIVE)
[2024-03-19 16:37] VITALS: BP 109/71; PULSE 78
--- NOTE | 2024-03-19 16:38 | XRAY ---
Indication: Right pelvic pain. Two-dimensional transvaginal pelvic sonogram performed. Comparison: March 15, 2022 Uterus again anteverted measuring 8.9 x 3.8 x 5.2 cm. Myometrium appears heterogeneous in echogenicity. Lower uterine segment demonstrates new 9 mm nabothian cyst. Endometrial stripe measures 5.4 mm. No endometrial cavity mass or fluid collection. Right ovary measures 3.8 x 2.3 x 4.3 cm and left measures 2.6 x 2.0 x 3.3 cm. Normal follicular cysts and perfusion bilaterally. No suspicious adnexal mass or free fluid. Impression: New nabothian cyst. Remaining transvaginal pelvic sonogram is negative.
[2024-03-19] MEDS: NORCO 5/325 MG PO PRN (16:45)
[2024-03-19 16:46] LABS: CHLAMYDIA DNA NOT DETECTED (NEGATIVE); GC DNA Probe NOT DETECTED (NEGATIVE)
== END 2024-03-19 16:37 | disposition home or self-care (01) ==
LOC: ED 12:19
DX: K59.89 Other specified functional intestinal disorders (principal); R10.31 Right lower quadrant pain; N83.201 Unspecified ovarian cyst, right side; N88.8 Other specified noninflammatory disorders of cervix uteri; Z79.899 Other long term (current) drug therapy
CPT/HCPCS: 36000; 36415; 74176; 76856; 80053; 81001; 81025; 83605; 83690; 85025; 87481; 87491; 87591; 87661; 87801; 96360; 96374; 96375; 99284; J1885; J2270; J2405; A9270-GY

== ENCOUNTER 2024-08-07 11:29 | Emergency (ER) | payer OTHER ==
[2024-08-07 11:46] VITALS: TEMP 98.2
[2024-08-07] MEDS ORDERED: TORAdol 30 mg Injection ONE (12:24)
[2024-08-07] MEDS: TORAdol 30 mg Injection IM ONE (12:29)
--- NOTE | 2024-08-07 12:36 | XRAY ---
Indication: Pain. Comparison: July 05, 2006 3 portable views right knee obtained. Again no bony, articular, or soft tissue abnormalities.
--- NOTE | 2024-08-07 12:46 | ERPHSYRPT ---
- History of Present Illness Time Seen by Provider: 08/07/24 11:40 Source: patient Exam Limitations: no limitations Patient Subjective Stated Complaint: right knee pain Triage Nursing Assessment: Pt was brought to the ER by a friend, bennett lackey ra cal pain as 5/10, pulses normal, skin n/w/d, able to walk with partial weight and pain, denies any known injury, doesn't appear to be in any distress Physician History: 34 years old healthy female presented in the ER with complaint of right knee pain since yesterday with progressive worsening. Patient reports pain more in the upper knee area with no swelling but hurts to ambulate. Better with resting. Denies any fall or trauma. Mild tenderness at hamstring tendon insertion area. No significant bony tenderness. No obvious ballottement. Negative anterior posterior drawer signs. She is given Toradol for symptomatic relief, feeling better on reevaluation. X-rays right knee are negative for acute fracture dislocation reviewed by me followed by official read. I believe patient has ligamentous injury/strain/sprain, recommended intermittent ice application, Matt wrap, NSAIDs, avoiding exertional activity and outpatient orthopedics follow-up. Discussed signs symptoms of worsening needing return to ER which she seems understanding. Stable for discharge. Allergies/Adverse Reactions: vancomycin Allergy (Severe, Verified 08/07/24 11:47) Tightness of Throat Penicillins Allergy (Mild, Verified 08/07/24 11:47) Hives amoxicillin Allergy (Verified 08/07/24 11:47) Hives Home Medications: ALPRAZolam 0.25 MG [xanAX 0.25 MG] 1 - 2 tab PO BID 08/07/24 [History] Escitalopram Oxalate [Lexapro] 10 mg PO DAILY 08/07/24 [History] Hx Tetanus, Diphtheria Vaccination/Date Given: No Hx Influenza Vaccination/Date Given: No Hx Pneumococcal Vaccination/Date Given: No Travel Risk - International Travel Have you traveled outside of the country in past 3 weeks: No - Emerging Infectious Disease Are you exhibiting symptoms associated with any current EIDs: No Symptoms: Abdominal Pain - Review of Systems Constitutional: No Symptoms Ears, Nose, & Throat: No Symptoms Respiratory: No Symptoms Cardiac: No Symptoms Abdominal/Gastrointestinal: No Symptoms Genitourinary Symptoms: No Symptoms Musculoskeletal: Joint Pain Skin: No Symptoms Neurological: No Symptoms Endocrine: No Symptoms - Past Medical History Pertinent Past Medical History: Yes Neurological History: No Pertinent History ENT History: No Pertinent History Cardiac History: No Pertinent History Respiratory History: No Pertinent History Endocrine Medical History: No Pertinent History Musculoskeletal History: No Pertinent History GI Medical History: No Pertinent History History: No Pertinent History Psycho-Social History: No Pertinent History Female Reproductive Disorders: No Pertinent History Other Medical History: PT IS HEP C POSITIVE. PT HAS HX OF IV DRUG USE, LAST USED 2 YEARS AGO. 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 PF IA EGNANCY - Past Surgical History Past Surgical History: Yes Neuro Surgical History: No Pertinent History Cardiac: No Pertinent History Respiratory: No Pertinent History Gastrointestinal: No Pertinent History Genitourinary: No Pertinent History Musculoskeletal: No Pertinent History Female Surgical History: Dilation & Curettage, Tubal Ligation Other Surgical History: 2012 PT HAD A D&C D/T RETAINED PLACENTA - Female History Hx Last Menstrual Period: 2 weeks ago Hx Now: No (tubal) - Social History Smoking Status: Current every day smoker How long have you smoked: vapes Exposure to second hand smoke: No Drug Use: none - Social Determinants of Health Will the patient participate in the screening: Yes Do you worry about a steady place to live?: No Do you have any problems with any of the following?: No known problems In the past 12 months,have you had to go without utilities?: No Transportation Issues: No Has anyone in your support network made you feel unsafe?: No Have you or anyone in your house had to go w/o enough food: No - Nursing Vital Signs Nursing Vital Signs: Initial Vital Signs Temperature 98.2 F 08/07/24 11:40 Pulse Rate 80 08/07/24 11:40 Blood Pressure 105/71 08/07/24 11:40 O2 Sat by Pulse Oximetry 100 08/07/24 11:40 Pain Scale Pain Intensity 5 - Physical Exam General Appearance: no apparent distress Neck Exam: normal inspection, full range of motion Cardiovascular/Respiratory Exam: normal breath sounds, regular rate/rhythm Knees Exam: right knee: pain, soft tissue tenderness, left knee: normal range of motion, bilateral knee: normal inspection Neuro/Tendon Exam: normal sensation, normal motor functions, normal tendon functions Mental Status Exam: alert, oriented x 3, cooperative Skin Exam: normal color SpO2 Interpretation: normal SpO2: 100 O2 Delivery: Room Air Ordered Tests: Active Orders 24 hr Category Date Time Status KNEE (3 VIEWS) Stat Exams 08/07/24 12:13 Completed Medication Summary Discontinued Medications Generic Name Dose Route Start Last Admin Trade Name Zander PRN Reason Stop Dose Admin Ketorolac Tromethamine 30 mg 08/07/24 12:14 08/07/24 12:29 Ketorolac Tromethamine 30 Mg/Ml Inj IM 08/07/24 12:15 30 mg STAT ONE Administration Ketorolac Tromethamine Confirm 08/07/24 12:24 Ketorolac Tromethamine 30 Mg/Ml Inj Administered 08/07/24 12:25 Dose 30 mg .ROUTE .STK-MED ONE - Progress Progress: improved, pain not gone completely Progress Note: 08/07/24 12:44 34 years old healthy female presented in the ER with complaint of right knee pain since yesterday with progressive worsening. Patient reports pain more in the upper knee area with no swelling but hurts to ambulate. Better with resting. Denies any fall or trauma. Mild tenderness at hamstring tendon insertion area. No significant bony tenderness. No obvious ballottement. Negative anterior posterior drawer signs. She is given Toradol for symptomatic relief, feeling better on reevaluation. X-rays right knee are negative for acute fracture dislocation reviewed by me followed by official read. I believe patient has ligamentous injury/strain/sprain, recommended intermittent ice application, Matt wrap, NSAIDs, avoiding exertional activity and outpatient orthopedics follow-up. Discussed signs symptoms of worsening needing return to ER which she seems understanding. Stable for discharge. Counseled pt/family regarding: diagnosis, need for follow-up, rad results Medical Desision Making - Diagnostic Testing Diagnostic test were ordered, analyzed, and reviewed by me: Yes Radiological Interpretation: Interpreted by me, Reviewed by me - Risk of complications The pt has a mod risk of morbidity or mortality based on: Need for prescription drug management - Departure Departure Disposition: Home Clinical Impression: Knee sprain Condition: Stable Critical Care Time: No Referrals: MARIO BOOGIE MD [Primary Care Provider] - Follow up with PCP 1 day KADIE BUSH DO [ACTIVE STAFF] - Follow up/PCP as directed (Call for appointment) Instructions: Knee Sprain (DC) Additional Instructions: Intermittent ice application. Take Tylenol/ibuprofen as needed. Avoid exertional activities. Follow-up with orthopedics for reevaluation. Return to ER for any worsening. Prescriptions: Ibuprofen 600 mg PO Q6HPRN PRN 10 Days #20 tablet PRN Reason: Pain
[2024-08-07 13:06] VITALS: BP 99/71; PULSE 78; RESP 18; O2SAT 97
== END 2024-08-07 13:07 | disposition home or self-care (01) ==
LOC: ED 11:29
DX: S83.91XA Sprain of unspecified site of right knee, initial encounter (principal); Z79.899 Other long term (current) drug therapy; Z72.0 Tobacco use
CPT/HCPCS: 73562; 96372; 99283; J1885

== ENCOUNTER 2024-10-16 06:02 | Day surgery (SDC) | payer OTHER ==
[2024-10-16] MEDS: Lactated Ringers 1,000 ML IV SCH (06:12)
[2024-10-16 06:16] LABS: HCG URINE TEST NEGATIVE (NEGATIVE)
[2024-10-16] MEDS ORDERED: propofoL IV ONE (07:27)
[2024-10-16] MEDS ORDERED: Versed 2 MG/2 ML Injection ONE (07:27)
[2024-10-16] MEDS ORDERED: Xylocaine-Mpf 2% 5 Ml Vial ONE (07:27)
--- NOTE | 2024-10-16 08:00 | PCM.DCORD ---
- Discharge Disposition: Home, Self-Care Condition: Stable Prescriptions: New PANTOPRAZOLE 40 mg Tablet [Protonix 40MG Tablet] 40 mg PO QPM #30 tab Continue Escitalopram Oxalate [Lexapro] 10 mg PO DAILY ALPRAZolam 0.25 MG [xanAX 0.25 MG] 1 - 2 tab PO BID Ibuprofen 600 mg PO Q6HPRN PRN 10 Days #20 tablet PRN Reason: Pain buPROPion HCL [Wellbutrin Xl] 150 mg PO DAILY Follow up with: MARIO BOOGIE MD [Primary Care Provider, FAMILY PRACTICE]
[2024-10-16 09:02] VITALS: PULSE 79; TEMP 97.5; O2SAT 98
[2024-10-16 09:15] VITALS: BP 111/72; RESP 16
--- NOTE | 2024-10-24 12:32 | OP ---
SURGERY DATE/TIME: 10/16/2024 [id number] PREOPERATIVE DIAGNOSIS: Dysphagia. POSTOPERATIVE DIAGNOSES: 1) Mild gastritis. 2) Distal esophagitis. PROCEDURE: Esophagogastroduodenoscopy. SURGEON: Rigoberto Vidal MD ANESTHESIA: MAC. ESTIMATED BLOOD LOSS: Minimal. SPECIMENS: There are 2 cold forceps biopsies from the gastric antrum and 2 cold forceps biopsies from the GE junction. DESCRIPTION OF PROCEDURE AND FINDINGS: After informed written consent was obtained, the patient was taken to the endoscopy suite. She was placed in the left lateral decubitus position, and anesthesia was titrated to the desired level of consciousness after a bite block was inserted. The endoscope was easily inserted into the posterior oropharynx. Under direct visualization, the esophagus was traversed. The esophageal mucosa had a normal appearance. GE junction had some mild inflammatory changes of the distal esophagus, but no other masses or mucosal abnormalities were encountered. Upon entry into the stomach, there was normal rugae of the gastric mucosa. The gastric antrum showed some mild to moderate gastritis-type changes with no focal ulceration or bleeding. Duodenum had a normal mucosal appearance after the pylorus was traversed. Two small forceps biopsies were taken from the gastric antrum and sent for H pylori testing due to the gastritis changes. Upon withdrawal again, there was some mild distal esophagitis in the GE junction region. Therefore, 2 cold forceps biopsies were taken from that region as well and sent for pathology testing. The patient tolerated the procedure well, and after removal of the scope, bite block was removed, and she was transferred to Recovery in good condition. I have advised that she follow up in a week for pathology results and started her on PPI therapy at the time of procedure.
== END 2024-10-16 09:18 | disposition home or self-care (01) ==
LOC: SDC 06:02
PROVIDERS: ATTEND Family Medicine
DX: K29.70 Gastritis, unspecified, without bleeding (principal); R13.10 Dysphagia, unspecified; K20.90 Esophagitis, unspecified without bleeding
CPT/HCPCS: 81025; J2250; J2704